=== PATIENT | male | born 1960 | race Caucasian/White ===

== ENCOUNTER → 2016-05-08 | Outpatient (CLI) | payer BC, OTHER ==
[~2016-05-08] MED LIST: CZR25 PO; LOSA1TAB38 PO; SIMV20TA2 PO; TPRSR25 PO
[2016-05-08 13:30] LABS: ALT/SGPT 32 U/L (12-78); AST/SGOT 24 U/L (15-37); BLOOD UREA NITROGEN 11 mg/dl (7-18); BUN/CREATININE RATIO 9.9 (10-20); CALCIUM 8.5 mg/dl (8.5-10.1); CARBON DIOXIDE 27 mmol/L (21-32); CHLORIDE 100 mmol/L (98-107); CHOLESTEROL 144 mg/dl (0-200); GLUCOSE 108 mg/dl (70-99); POTASSIUM 3.5 mmol/L (3.5-5.1); SODIUM 136 mmol/L (136-145)
[2016-05-08 13:34] LABS: CHOLESTEROL/HDL RATIO 4.5; HDL CHOLESTEROL 32 mg/dl; LDL CHOLESTEROL CALCULATED 94 mg/dl; TRIGLYCERIDES 92 mg/dl (0-150); VERY LOW DENSITY LIPOPROT CALC 18 mg/dl
== END | disposition home or self-care (01) ==
LOC: C.LABMFLN 09:10
PROVIDERS: ATTEND Family Medicine
DX: Z00.00 Encounter for general adult medical examination without abnormal findings (principal); Z13.220 Encounter for screening for lipoid disorders

== ENCOUNTER 2016-05-09 17:39 | Inpatient (IN) | payer BC, OTHER ==
[~2016-05-09] VITALS: Ht 170.2 cm; Wt 84.1 kg
[2016-05-09] MEDS ORDERED: ACETAMINOPHEN 500 MG TAB PO STA (18:05)
[2016-05-09] MEDS ORDERED: SODIUM CHLORIDE 0.9% 1000ML 1,000 ML IV STA ×2 (18:05→18:52)
--- NOTE | 2016-05-09 18:14 | DIAGNOSTIC IMAGING REPORT ---
CHEST ONE VIEW PORTABLE CLINICAL HISTORY: Sepsis dyspnea COMPARISON STUDY: No previous studies for comparison. FINDINGS: The bones soft tissues and hemidiaphragms are normal. The cardiomediastinal silhouette is normal. The lungs are clear. The pulmonary vasculature is normal. IMPRESSION: Negative chest. Electronically signed by: Lukasz Rai M.D. 05/09/2016 6:12 PM Dictated Date/Time: 05/09/2016 6:12 PM
[2016-05-09] MEDS ORDERED: ALBUT/IPRATROP 3MG/0.5MG NEB 3 ML VIAL INH ONE (18:15)
--- NOTE | 2016-05-09 18:23 | EMERGENCY ROOM VISIT NOTE ---
History Report prepared by Walt: Christine Edwards Under the Supervision of: Dr. Shankar Shelley M.D. First contact with patient: 17:55 Chief Complaint: WEAKNESS Stated Complaint: VERY WEAK,FEVER Nursing Triage Summary: See orange note on chart. Sent by Dr. Lawler. Was seen at [place] last night, unremarkable workup. Fever, fatigue, SOB, cough. History of Present Illness The patient is a 55 year old male who presents to the Emergency Room with complaints of worsening generalized weakness that started one week ago. The patient was sent by Dr. Lawler. The patient has been experiencing an intermittently productive cough with green or blood-tinged sputum that started about one week ago. He states that the cough is worse today. The patient is also experiencing chest tightness and he developed a fever several days ago. The patient states that he develops chills then a headache and once those resolve, he experiences dyspnea and fatigue with minimal exertion. He took two Tylenol Cold this morning at 0600, but he has not taken anything since then. He was seen in [place] yesterday and his work-up was unremarkable. He was negative for the flu yesterday. His lab work showed a white blood cell count of 15 and bacteria in his urine. The patient was unaware of the bacteria in his urine. The patient's adds that the patient's PCP was concerned about an infection around his heart. Source of History: patient Onset: one week ago Position: other (generalized) Quality: other (weakness) Timing: worsening Associated Symptoms: + SOB (dyspnea with minimal exertion), + chills, + cough (intermittently productive with green or blood-tinged sputum), + fatigue ( with minimal exertion), + fevers, + headache Note: chest tightness Review of Systems See HPI for pertinent positives & negatives. A total of 10 systems reviewed and were otherwise negative. Past Medical & Surgical Medical Problems: (1) Dyspnea (2) Hypertension (3) Troponin I above reference range Family History Heart disease Social History Smoking Status: Never Smoker Marital Status: Housing Status: lives with family Current/Historical Medications Scheduled Losartan Potassium (Cozaar), 100 MG PO DAILY Simvastatin (Zocor), 20 MG PO HS Allergies Coded Allergies: No Known Allergies (Unverified , 05/09/16) Physical Exam Vital Signs Date Time Temp Pulse Resp B/P Pulse Ox O2 Delivery O2 Flow Rate FiO2 05/09/16 20:46 78 20 96 Room Air 05/09/16 20:39 37.9 80 18 106/65 95 Room Air 05/09/16 19:27 95 Room Air 05/09/16 19:27 39.0 87 18 121/63 95 Room Air 05/09/16 18:50 88 05/09/16 17:40 38.4 91 18 121/70 97 Room Air Physical Exam GENERAL: Patient is a healthy-appearing well-nourished male. HEAD: Normocephalic atraumatic EYES: Ocular movements intact pupils equal and react to light OROPHARYNX mucous membranes are moist no exudates present no erythema or edema present NECK: Supple no nuchal rigidity no evidence of meningitis or encephalitis on exam CHEST: Good equal expansion LUNGS: Clear and equal to auscultation CARDIAC: Normal S1 and S2 ABDOMEN: Soft nontender no guarding BACK: No CVA tenderness EXTREMITIES: No pain upon palpation normal muscle strength in all groups no clubbing cyanosis or edema NEURO: Patient is following commands is answering questions appropriately. Alert and oriented x3 Cranial Nerves 2-12 grossly intact Medical Decision & Procedures ER Provider Diagnostic Interpretation: X-ray results as stated below per my interpretation and radiologist interpretation. Other radiology results as stated below per my review and radiologist interpretation: CHEST ONE VIEW PORTABLE IMPRESSION: Negative chest. Electronically signed by: Lukasz Rai M.D. 05/09/2016 6:12 PM Dictated Date/Time: 05/09/2016 6:12 PM CHEST CTA for PULMONARY ARTERIES IMPRESSION: No evidence for pulmonary embolus. The lungs are clear. Electronically signed by: Lukasz Rai M.D. 05/09/2016 10:15 PM Dictated Date/Time: 05/09/2016 10:12 PM Laboratory Results 05/09/16 18:29 Red Blood Count 4.17, Mean Corpuscular Volume 92.8, Mean Corpuscular Hemoglobin 32.1, Mean Corpuscular Hemoglobin Concent 34.6, Mean Platelet Volume 9.1, Neutrophils (%) (Auto) 69.5, Lymphocytes (%) (Auto) 13.2, Monocytes (%) (Auto) 16.9, Eosinophils (%) (Auto) 0.1, Basophils (%) (Auto) 0.1, Neutrophils # (Auto ) 9.79, Lymphocytes # (Auto) 1.86, Monocytes # (Auto) 2.38, Eosinophils # (Auto ) 0.01, Basophils # (Auto) 0.01 05/09/16 18:29 Test 05/09/16 18:29 05/09/16 18:38 05/09/16 18:55 White Blood Count 14.08 K/uL (4.8-10.8) Red Blood Count 4.17 M/uL (4.7-6.1) Hemoglobin 13.4 g/dL (14.0-18.0) Hematocrit 38.7 % (42-52) Mean Corpuscular Volume 92.8 fL (80-100) Mean Corpuscular Hemoglobin 32.1 pg (25-34) Mean Corpuscular Hemoglobin Concent 34.6 g/dl (32-36) Platelet Count 231 K/uL (130-400) Mean Platelet Volume 9.1 fL (7.4-10.4) Neutrophils (%) (Auto) 69.5 % Lymphocytes (%) (Auto) 13.2 % Monocytes (%) (Auto) 16.9 % Eosinophils (%) (Auto) 0.1 % Basophils (%) (Auto) 0.1 % Neutrophils # (Auto) 9.79 K/uL (1.4-6.5) Lymphocytes # (Auto) 1.86 K/uL (1.2-3.4) Monocytes # (Auto) 2.38 K/uL (0.11-0.59) Eosinophils # (Auto) 0.01 K/uL (0-0.5) Basophils # (Auto) 0.01 K/uL (0-0.2) RDW Standard Deviation 46.7 fL (36.4-46.3) RDW Coefficient of Variation 13.6 % (11.5-14.5) Immature Granulocyte % (Auto) 0.2 % Immature Granulocyte # (Auto) 0.03 K/uL (0.00-0.02) Prothrombin Time 11.7 SECONDS (9.0-12.0) Prothromb Time International Ratio 1.1 (0.9-1.1) Activated Partial Thromboplast Time 29.2 SECONDS (21.0-31.0) Partial Thromboplastin Ratio 1.1 Anion Gap 12.0 mmol/L (3-11) Est Creatinine Clear Calc Drug Dose 81.1 ml/min Estimated GFR () 86.5 Estimated GFR (Non- 74.6 BUN/Creatinine Ratio 7.2 (10-20) Calcium Level 8.0 mg/dl (8.5-10.1) Total Bilirubin 1.2 mg/dl (0.2-1) Aspartate Amino Transf (AST/SGOT) 27 U/L (15-37) Alanine Aminotransferase (ALT/SGPT) 30 U/L (12-78) Alkaline Phosphatase 48 U/L (45-117) Total Creatine Kinase 310 U/L (39-308) Creatine Kinase MB 1.1 ng/ml (0.5-3.6) Creatine Kinase MB Ratio 0.4 (0-3.0) Total Protein 7.9 gm/dl (6.4-8.2) Albumin 3.4 gm/dl (3.4-5.0) Globulin 4.5 gm/dl (2.5-4.0) Albumin/Globulin Ratio 0.8 (0.9-2) Monoscreen NEG (NEG) Bedside Lactic Acid Venous 0.74 mmol/L (0.90-1.70) Urine Color YELLOW Urine Appearance CLEAR (CLEAR) Urine pH 5.5 (4.5-7.5) Urine Specific [place] 1.013 (1.000-1.030) Urine Protein 2+ (NEG) Urine Glucose (UA) NEG (NEG) Urine Ketones TRACE (NEG) Urine Occult Blood 3+ (NEG) Urine Nitrite NEG (NEG) Urine Bilirubin NEG (NEG) Urine Urobilinogen NEG (NEG) Urine Leukocyte Esterase NEG (NEG) Urine WBC (Auto) 1-5 /hpf (0-5) Urine RBC (Auto) 0-4 /hpf (0-4) Urine Hyaline Casts (Auto) 1-5 /lpf (0-5) Urine Epithelial Cells (Auto) 10-20 /lpf (0-5) Urine Bacteria (Auto) NEG (NEG) Influenza Type A (RT-PCR) Neg for Influ A (NEG) Influenza Type B (RT-PCR) Neg for Influ B (NEG) Labs reviewed by ED physician. Medications Administered Medications (Trade) Dose Ordered Sig/Ifrah Route Start Time Stop Time Status Last Admin Dose Admin Acetaminophen (Tylenol Tab) 1,000 mg NOW STAT PO 05/09/16 18:05 05/09/16 18:08 DC 05/09/16 18:52 1,000 MG Albuterol/ Ipratropium 12 ml 12 ml ONE ONCE INH 05/09/16 18:15 05/09/16 18:16 DC 05/09/16 20:45 12 ML Sodium Chloride (Nss 1000ml) 1,000 ml @ 999 mls/hr Q1H1M STAT IV 05/09/16 18:05 05/09/16 19:05 DC 05/09/16 19:00 999 MLS/HR Ketorolac Tromethamine 30 mg 30 mg NOW STAT IV 05/09/16 18:52 05/09/16 18:54 DC 05/09/16 19:22 30 MG Sodium Chloride (Nss 1000ml) 1,000 ml @ 999 mls/hr Q1H1M STAT IV 05/09/16 18:52 05/09/16 19:52 DC 05/09/16 19:26 999 MLS/HR Potassium Chloride (Klor-Con M10) 40 meq NOW STAT PO 05/09/16 19:31 05/09/16 19:32 DC 05/09/16 20:39 40 MEQ Vancomycin HCl (Vancomycin 1gm/ 270ml Nss) 1 gm NOW STAT IV 05/09/16 20:10 05/09/16 20:13 DC 05/09/16 20:39 1 GM ECG Indication: weakness Rate (beats per minute): 91 Rhythm: normal sinus Findings: no acute ischemic change, no ectopy ED Course 175: Past medical records reviewed. The patient was evaluated in room B10. A complete history and physical examination was performed. 1805: Ordered Sodium Chloride 1000 ml @ 999 mls/hr IV, Tylenol tab 1000 mg PO 1815: Ordered DuoNeb 12 ml INH 1852: Ordered Sodium Chloride 1000 ml @ 999 mls/hr IV, Toradol Inj 30 mg IV 1930: Ordered Potassium Chloride 40 meq PO 2009: Ordered Vancomycin HCl 1 gm IV, Zosyn 4.5 gm IV 2015: I discussed the patient's case with Dr. Pereira - [facility] [place], he has agreed to evaluate the patient for further management and care. 2017: Upon reexamination the patient is resting comfortably. I discussed results and treatment plan with the patient. He verbalizes agreement and understanding. I spoke with Dr. Pereira from the [facility]. The patient will be evaluated for further management. Medical Decision Differential diagnosis: Etiologies such as metabolic, infection, hypo/hyperglycemia, electrolyte abnormalities, cardiac sources, intracerebral event, toxicologic, neurologic, as well as others were entertained. This is a 55-year-old male who presents emergency department complaining of shortness of breath that has been ongoing for the past 3 days. She was sent in by his primary care physician as he is an elevation in his white blood count he was given 2 L of fluid in the emergency department and started on antibiotics. He is also given Tylenol as well as Toradol. Repeat examination revealed improvement patient's symptoms. The patient also has an elevation in his troponin level. For this reason I did discuss the case with the hospitalist service. Patient was in agreement with the treatment plan. Consults Time Called: 2012 Consulting Physician: Dr. Kelli LOWE Returned Call: 2014 I discussed the patient's case with Dr. Kelli LOWE, he has agreed to evaluate the patient for further management and care. Impression Primary Impression: Fever Critical Care I have personally spent greater than 30 minutes of critical care time in the direct management of this patient. This includes bedside care, interpretation of diagnostic studies, and testing, discussion with consultants, patient, and family members, and other required patient management activities. This 30 minutes is in excess of all separately billable procedures. Scribe Attestation The scribe's documentation has been prepared under my direction and personally reviewed by me in its entirety. I confirm that the note above accurately reflects all work, treatment, procedures, and medical decision making performed by me. Departure Information Dispostion Being Evaluated By Hospitalist Referrals Jose Lawler M.D. (PCP) Patient Instructions My [facility] Problem Qualifiers Primary Impression: Fever Fever type: unspecified Qualified Codes: R50.9 - Fever, unspecified
[2016-05-09 18:51] LABS: BASO % 0.1 %; BASO ABS # 0.01 K/uL (0-0.2); COMPLETE YES; EOS % 0.1 %; HEMATOCRIT 38.7 % (42-52); IG% 0.2 %; LYMPH % 13.2 %; LYMPH ABS # 1.86 K/uL (1.2-3.4); MEAN CELL VOLUME 92.8 fL (80-100); MEAN CORPUSCULAR HEMOGLOBIN 32.1 pg (25-34); MEAN CORPUSCULAR HGB CONC 34.6 g/dl (32-36); MEAN PLATELET VOLUME 9.1 fL (7.4-10.4); MONO % 16.9 %; NEUT % 69.5 %; PLATELET COUNT 231 K/uL (130-400); RED BLOOD COUNT 4.17 M/uL (4.7-6.1); WHITE BLOOD COUNT 14.08 K/uL (4.8-10.8)
[2016-05-09] MEDS ORDERED: KETOROLAC TROMETHAMINE 30 MG/ML VIAL IV STA (18:52)
[2016-05-09 19:00] LABS: INR 1.1 (0.9-1.1); PARTIAL THROMBOPLASTIN RATIO 1.1; PROTHROMBIN TIME (PATIENT) 11.7 SECONDS (9.0-12.0)
[2016-05-09] MEDS ORDERED: LOSA1TAB38 PO (19:18)
[2016-05-09] MEDS ORDERED: SIMV20TA2 PO (19:18)
[2016-05-09 19:27] LABS: BUN/CREATININE RATIO 7.2 (10-20); CREATININE 1.1 mg/dl (0.60-1.40); POTASSIUM 3.3 mmol/L (3.5-5.1)
[2016-05-09] MEDS ORDERED: POTASSIUM CHLORIDE 10 MEQ TABCR PO STA ×2 (19:31→22:29)
[2016-05-09 19:32] LABS: URINE APPEARANCE CLEAR (CLEAR); URINE BILIRUBIN NEG (NEG); URINE COLOR YELLOW; URINE NITRITE NEG (NEG); URINE PH 5.5 (4.5-7.5); URINE SPECIFIC GRAVITY 1.013 (1.000-1.030); UROBILINOGEN NEG (NEG); ZZUR CULT IF INDIC CLEAN CATCH NO
[2016-05-09 19:33] LABS: MANUAL MICROSCOPIC REQUIRED? NO; REVIEW REQ? NO
[2016-05-09 19:49] LABS: ALB/GLOB RATIO 0.8 (0.9-2); CKMB/CK RATIO 0.4 (0-3.0)
[2016-05-09] MEDS ORDERED: VANCOMYCIN 1GM/270ML NSS IV STA (20:10)
[2016-05-09] MEDS ORDERED: PIPERACILLIN/TAZOBACTAM 4.5 GM/100ML D5W IV STA (20:10)
[2016-05-09] MEDS ORDERED: OPTIRAY 320 IV PRN (20:30)
[2016-05-09 20:46] VITALS: PULSE 78; O2SAT 96
[2016-05-09] MEDS ORDERED: ALUMINUM/MAGNESIUM/SIMETH (MAALOX MAX) 30 ML UDC PO PRN (21:15)
[2016-05-09] MEDS ORDERED: ZOLPIDEM TARTRATE 5 MG TAB PO PRN (21:15)
[2016-05-09] MEDS ORDERED: ONDANSETRON INJ 2 MG/ML 2 ML VIAL IV PRN (21:15)
[2016-05-09] MEDS ORDERED: MoRPHine SULFATE 2 MG/ML CARP IV PRN (21:15)
[2016-05-09] MEDS ORDERED: POLYETHYLENE (MIRALAX) 17 GM PACK PO PRN (21:15)
[2016-05-09] MEDS ORDERED: MAGNESIUM HYDROXIDE SUSP 30 ML UDC PO PRN (21:15)
[2016-05-09] MEDS ORDERED: NITROGLYCERIN 0.4 MG SL PER TAB CHARGE SL PRN (21:15)
[2016-05-09 21:18] LABS: INFLUENZA A PCR Neg for Influ A (NEG); INFLUENZA B PCR Neg for Influ B (NEG)
--- NOTE | 2016-05-09 21:31 | History and Physical ---
History & Physical Date & Time of Service: May 09, 2016 at 21:14 Chief Complaint: Very Weak,Fever Primary Care Physician: Jose Lawler M.D. History of Present Illness Source: patient 55 y/o M w/Hx HTN, HPL. Pt has had progressive SOB and recurrent fevers for 1 week. He denies CP but describes persistent tightness in his chest and admits to a productive cough and a sore throat. He presented to the ER at the behest of his primary MD and initial labs revealed a (+) troponin of 0.53. There is no clear evidence of PNM on initial CXR. Rapid flu is negative - PCR pending. CT chest pending on admission. Past Medical/Surgical History Medical Problems: (1) Hypertension Status: Chronic 2) Hyperlipidemia Family History Heart disease Social History Smoking Status: Never Smoker Marital Status: Allergies Coded Allergies: No Known Allergies (Unverified , 05/09/16) Home Medications Scheduled Losartan Potassium (Cozaar), 100 MG PO DAILY Simvastatin (Zocor), 20 MG PO HS Review of Systems Constitutional: + chills, + fever, + sweats Eyes: No eye pain, No worsening of vision ENT: No hearing loss, No nasal symptoms, No unusual epistaxis Respiratory: + dyspnea at rest, + dyspnea on exertion, + shortness of breath, No cough, No sputum, No wheezing Cardiovascular: No PND, No chest pain, No orthopnea Abdomen: No nausea, No pain, No vomiting Musculoskeletal: No joint pain, No muscle pain Genitourinary - Male: No dysuria, No hematuria, No urinary frequency, No urinary urgency Neurologic: + weakness, No memory loss, No paralysis Psychiatric: No anhedonism, No depression symptoms Endocrine: + fatigue Hematologic / Lymphatic: No abnormal bleeding/bruising Integumentary: No rash Allergic / Immunologic: No environmental allergies Physical Exam Vital Signs Date Time Temp Pulse Resp B/P Pulse Ox O2 Delivery O2 Flow Rate FiO2 05/09/16 20:46 78 20 96 Room Air 05/09/16 20:39 37.9 80 18 106/65 95 Room Air 05/09/16 19:27 95 Room Air 05/09/16 19:27 39.0 87 18 121/63 95 Room Air 05/09/16 18:50 88 05/09/16 17:40 38.4 91 18 121/70 97 Room Air General Appearance: WD/WN, no apparent distress Head: normocephalic Eyes: normal inspection, PERRL, EOMI ENT: normal ENT inspection, hearing grossly normal, TMs normal, pharynx normal Neck: supple, thyroid normal Respiratory/Chest: chest non-tender, lungs clear, normal breath sounds, no respiratory distress, no accessory muscle use Cardiovascular: regular rate, rhythm, no edema, no gallop, no JVD, no murmur, normal peripheral pulses Abdomen/GI: normal bowel sounds, non tender, soft, occult blood negative Back: normal inspection, no CVA tenderness Extremities/Musculoskelatal: normal inspection, no calf tenderness, normal capillary refill, no pedal edema, normal range of motion 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, no motor/sensory deficits, alert, normal mood/affect, normal reflexes, oriented x 3 Skin: normal color, warm/dry, no rash Lymphatic: no adenopathy Diagnostics Laboratory Results Results Past 24 Hours Test 05/09/16 18:29 05/09/16 18:38 05/09/16 18:55 Range/Units White Blood Count 14.08 4.8-10.8 K/uL Red Blood Count 4.17 4.7-6.1 M/uL Hemoglobin 13.4 14.0-18.0 g/dL Hematocrit 38.7 42-52 % Mean Corpuscular Volume 92.8 80-100 fL Mean Corpuscular Hemoglobin 32.1 25-34 pg Mean Corpuscular Hemoglobin Concent 34.6 32-36 g/dl Platelet Count 231 130-400 K/uL Mean Platelet Volume 9.1 7.4-10.4 fL Neutrophils (%) (Auto) 69.5 % Lymphocytes (%) (Auto) 13.2 % Monocytes (%) (Auto) 16.9 % Eosinophils (%) (Auto) 0.1 % Basophils (%) (Auto) 0.1 % Neutrophils # (Auto) 9.79 1.4-6.5 K/uL Lymphocytes # (Auto) 1.86 1.2-3.4 K/uL Monocytes # (Auto) 2.38 0.11-0.59 K/uL Eosinophils # (Auto) 0.01 0-0.5 K/uL Basophils # (Auto) 0.01 0-0.2 K/uL RDW Standard Deviation 46.7 36.4-46.3 fL RDW Coefficient of Variation 13.6 11.5-14.5 % Immature Granulocyte % (Auto) 0.2 % Immature Granulocyte # (Auto) 0.03 0.00-0.02 K/uL Prothrombin Time 11.7 9.0-12.0 SECONDS Prothromb Time International Ratio 1.1 0.9-1.1 Activated Partial Thromboplast Time 29.2 21.0-31.0 SECONDS Partial Thromboplastin Ratio 1.1 Sodium Level 138 136-145 mmol/L Potassium Level 3.3 3.5-5.1 mmol/L Chloride Level 101 98-107 mmol/L Carbon Dioxide Level 25 21-32 mmol/L Anion Gap 12.0 3-11 mmol/L Blood Urea Nitrogen 8 7-18 mg/dl Creatinine 1.10 0.60-1.40 mg/dl Est Creatinine Clear Calc Drug Dose 81.1 ml/min Estimated GFR () 86.5 Estimated GFR (Non- 74.6 BUN/Creatinine Ratio 7.2 10-20 Random Glucose 95 70-99 mg/dl Calcium Level 8.0 8.5-10.1 mg/dl Total Bilirubin 1.2 0.2-1 mg/dl Aspartate Amino Transf (AST/SGOT) 27 15-37 U/L Alanine Aminotransferase (ALT/SGPT) 30 12-78 U/L Alkaline Phosphatase 48 45-117 U/L Total Creatine Kinase 310 39-308 U/L Creatine Kinase MB 1.1 0.5-3.6 ng/ml Creatine Kinase MB Ratio 0.4 0-3.0 Troponin I 0.520 0-0.045 ng/ml Total Protein 7.9 6.4-8.2 gm/dl Albumin 3.4 3.4-5.0 gm/dl Globulin 4.5 2.5-4.0 gm/dl Albumin/Globulin Ratio 0.8 0.9-2 Monoscreen NEG NEG Bedside Lactic Acid Venous 0.74 0.90-1.70 mmol/L Urine Color YELLOW Urine Appearance CLEAR CLEAR Urine pH 5.5 4.5-7.5 Urine Specific [place] 1.013 1.000-1.030 Urine Protein 2+ NEG Urine Glucose (UA) NEG NEG Urine Ketones TRACE NEG Urine Occult Blood 3+ NEG Urine Nitrite NEG NEG Urine Bilirubin NEG NEG Urine Urobilinogen NEG NEG Urine Leukocyte Esterase NEG NEG Urine WBC (Auto) 1-5 0-5 /hpf Urine RBC (Auto) 0-4 0-4 /hpf Urine Hyaline Casts (Auto) 1-5 0-5 /lpf Urine Epithelial Cells (Auto) 10-20 0-5 /lpf Urine Bacteria (Auto) NEG NEG Microbiology Results 05/09/16 Blood Culture, Received Pending 05/09/16 Blood Culture, Received Pending CXR normal Normal EKG Impression Assessment and Plan 55 y/o M w/Hx HTN, HPL. Pt has had progressive SOB and recurrent fevers for 1 week. He denies CP but describes persistent tightness in his chest and admits to a productive cough and a sore throat. He presented to the ER at the behest of his primary MD and initial labs revealed a (+) troponin of 0.53. There is no clear evidence of PNM on initial CXR. Rapid flu is negative - PCR pending. CT chest pending on admission. 1) Fevers and SOB - normal CXR - CT chest pending - pt is borderline tachy so that a viral illness in addition to PE is in the differential considering his elevated trop. Recieved antibiotics empirically in ER 2) Troponin elevation - will be placed on full dose anticoagulation, increased statin dose - will trend troponins, monitor on tlemetry and obtain an echo AM - elevation may agin be due to a PE and a CT chest is pending. Considering his temp we cannot r/o endocarditis , pericarditis , myocarditis - blood cultures obtained. Pt provided with a dose of Vanc and Zosyn in ER. We can continue monotherapy with Ceftriaxone if Flu is negative and pending culture and CT results. 3) HTN - cont Cozaar 4) Mild hypoK, HypoCA = repleted - repeat labs in AM Full does heparin - full code Total time for this admit including review of meds, labs, records, imaging, EKG - discussion with pt and ER attending - 37 min Level of Care Telemetry Resuscitation Status FULL RESUSCITATION VTE Prophylaxis VTE Risk Assessment Done? Y/N: Yes Risk Level: Moderate Given or contraindicated: Other Anticoagulation
[2016-05-09] MEDS ORDERED: ALBUTEROL 0.083% NEBU SOLN 3 ML VIAL INH PRN (21:45)
--- NOTE | 2016-05-09 22:16 | DIAGNOSTIC IMAGING REPORT ---
CHEST CTA for PULMONARY ARTERIES CT DOSE: 567.50 mGy.cm HISTORY: Chest pain dyspnea TECHNIQUE: Multiaxial CT images of the chest were performed following the intravenous administration of contrast to evaluate the pulmonary arteries. Maximal intensity projection images were also obtained. COMPARISON STUDY: None. FINDINGS: There is a normal caliber thoracic aorta with no evidence for dissection. There is no evidence for pulmonary embolus. No pleural effusions. No pneumothorax. The liver and spleen are unremarkable. No mediastinal or hilar lymphadenopathy. The central airways are patent. The lungs are clear. Minimal basilar dependent atelectasis IMPRESSION: No evidence for pulmonary embolus. The lungs are clear. Electronically signed by: Lukasz Rai M.D. 05/09/2016 10:15 PM Dictated Date/Time: 05/09/2016 10:12 PM
[2016-05-09 22:20] VITALS: BP 109/72; PULSE 93; TEMP 36.7; O2SAT 95; Ht 170.2 cm; Wt 84.1 kg
[2016-05-09] MEDS ORDERED: NSS + 20MEQ KCL 1000ML 1,000 ML IV SCH (23:00)
[2016-05-09] MEDS ORDERED: HEPARIN IV BOLUS 6,000 UNIT in SYRINGE 0 ML IV ONE (23:15)
[2016-05-09 23:28] VITALS: BP 116/73; PULSE 86; TEMP 36.8; O2SAT 95
[2016-05-09] MEDS: HEPARIN 25,000 UNIT/500ML D5W 500 ML IV PRN (23:36)
[2016-05-09] MEDS ORDERED: VANCOMYCIN CONSULT ACTIVE PRN (23:45)
[2016-05-10] VITALS (16 sets, daily range): BP systolic 106–154; BP diastolic 66–85; PULSE 95–114; TEMP 36.8–39.4; O2SAT 84–96
[2016-05-10] MEDS ORDERED: SODIUM CHLORIDE 0.9% IV SCH ×2
[2016-05-10] MEDS ORDERED: VANCOMYCIN IV SCH ×2
[2016-05-10] MEDS: CEFTRIAXONE SOD INJ 1 GM in DEXTROSE 5% ADD-VANTAGE 50ML 50 ML IV SCH (00:09)
[2016-05-10] MEDS: ACETAMINOPHEN 325 MG TAB PO PRN ×5 (01:18→23:03)
[2016-05-10] MEDS ORDERED: FUROSEMIDE 40 MG/4 ML VIAL ONE (02:54)
[2016-05-10] MEDS ORDERED: FUROSEMIDE INJ 20 MG in SYRINGE 0 ML IV ONE (03:15)
[2016-05-10 05:44] LABS: HEMATOCRIT 36.5 % (42-52); MEAN CELL VOLUME 90.8 fL (80-100); MEAN CORPUSCULAR HEMOGLOBIN 31.1 pg (25-34); MEAN CORPUSCULAR HGB CONC 34.2 g/dl (32-36); PLATELET COUNT 216 K/uL (130-400); RED BLOOD COUNT 4.02 M/uL (4.7-6.1); WHITE BLOOD COUNT 15.24 K/uL (4.8-10.8)
[2016-05-10 05:59] LABS: PARTIAL THROMBOPLASTIN RATIO 1.7
[2016-05-10 06:09] LABS: BUN/CREATININE RATIO 8.3 (10-20); CALCIUM 7.5 mg/dl (8.5-10.1); CREATININE 0.97 mg/dl (0.60-1.40); MAGNESIUM 2.2 mg/dl (1.8-2.4); POTASSIUM 3.6 mmol/L (3.5-5.1)
[2016-05-10] MEDS: HEPARIN 25,000 UNIT/500ML D5W 500 ML IV PRN ×2 (06:39→16:23)
[2016-05-10] MEDS ORDERED: HEPARIN IV BOLUS 3,000 UNIT in SYRINGE 0 ML IV ONE (06:45)
[2016-05-10] MEDS: ALBUT/IPRATROP 3MG/0.5MG NEB 3 ML VIAL INH SCH ×4 (07:29→19:59)
[2016-05-10] MEDS: CALCIUM CARBONATE 1250MG TAB PO SCH ×2 (07:29→20:30)
--- NOTE | 2016-05-10 08:06 | DIAGNOSTIC IMAGING REPORT ---
CHEST ONE VIEW PORTABLE CLINICAL HISTORY: Congestive heart failure. COMPARISON STUDY: Chest radiograph and chest CT May 09, 2016. FINDINGS: Lung volumes are normal. There is no pneumothorax or pleural effusion. Cardiac size is at the upper limits of normal. There has been interval development of pulmonary vascular congestion with suspected mild pulmonary edema. This is slightly greater within the left lung. IMPRESSION: Interval development of suspected mild pulmonary edema, slightly greater within the left lung. Electronically signed by: Jarad Chaves M.D. 05/10/2016 8:05 AM Dictated Date/Time: 05/10/2016 8:04 AM
[2016-05-10] MEDS: DOXYCYCLINE IV 100 MG in DEXTROSE 5% 100ML 100 ML IV SCH ×2 (08:29→20:30)
--- NOTE | 2016-05-10 09:41 | ECHOCARDIOGRAM REPORT ---
*NOTICE TO RECEIVING [employer] This information is strictly Confidential and protected under [place] law. [place] law prohibits you from making any further disclosure of this information unless further disclosure is expressly permitted by the written consent of the person to whom it pertains or is authorized by law. A general authorization for the release of medical or other information is not sufficient for this purpose. Hospital accepts no responsibility if the information is made available to any other person, INCLUDING THE PATIENT. Interpretation Summary * Name: LUPE BRANDON Study Date: 05/10/2016 06:45 AM BP: 106/68 mmHg * Patient Location: C.2T\S\S241\S\2 HR: 105 * : 1960 (M/d/yyyy) Gender: Male Height: 68 in * Age: 55 yrs Ethnicity: CA Weight: 195 lb * Ordering Physician: Prashant Pereira * Referring Physician: Jose Lawler * Performed By: Fide Smith RCS * * Reason For Study: Elevated Troponin * BSA: 2.0 m2 * -- Conclusions -- * 1. Mildly dilated left ventricle with mildly reduced systolic function. Estimated EF 45%. Severe hypokinesis to akinesis of inferior wall, otherwise, mild global hypokinesis. No left ventricular hypertrophy. Diastolic dysfunction, Grade II (pseudonormalization pattern). * 2. There is mild mitral regurgitation. * 3. Technically difficult study. * 4. Normal estimated right ventricular systolic pressure; RVSP 32 mmHg. * 5. No prior study available for comparison. Procedure Details * A complete two-dimensional transthoracic echocardiogram was performed (2D, M-mode, Doppler and color flow Doppler). Left Ventricle * Mildly dilated left ventricle with mildly reduced systolic function. Estimated EF 45%. Severe hypokinesis to akinesis of inferior wall, otherwise, mild global hypokinesis. No left ventricular hypertrophy. Right Ventricle * The right ventricle is normal in size and function. * The right ventricular systolic function is normal as assessed by tricuspid annular plane systolic excursion (TAPSE) (normal >1.5 cm). Atria * The left atrial size is normal. * Right atrial size is normal. * There is no evidence of atrial septal defect, but resolution does not allow assessment for a patent foramen ovale. Mitral Valve * The mitral valve is grossly normal. * There is no mitral valve stenosis. * There is mild mitral regurgitation. Tricuspid Valve * The tricuspid valve is not well visualized, but is grossly normal. * There is no tricuspid stenosis. * There is trace tricuspid regurgitation. Aortic Valve * The aortic valve is trileaflet. * No hemodynamically significant valvular aortic stenosis. * No aortic regurgitation is present. Pulmonic Valve * The pulmonary valve is inadequately visualized, but the Doppler data is adequate for interpretation. * There is no pulmonic valvular stenosis. * There is no significant pulmonary regurgitation. Great Vessels * The aortic root is normal size. * Ascending aorta of normal dimension Pericardium/Pleural * There is no pericardial effusion. Great Vessels * Normal inferior vena cava size and collapsability with sniff indicates a normal right atrial pressure of 3 mmHg Left Ventricular Diastolic Function * Diastolic dysfunction, Grade II (pseudonormalization pattern). MMode 2D Measurements and Calculations IVSd 1.1 cm IVSs 1.5 cm LVIDd 5.3 cm LVIDs 3.6 cm LVPWd 1.1 cm LVPWs 1.4 cm IVS/LVPW 1.0 FS 31.7 % EDV(Teich) 133.7 ml ESV(Teich) 54.5 ml EF(Teich) 59.2 % EDV(cubed) 146.5 ml ESV(cubed) 46.7 ml EF(cubed) 68.1 % % IVS thick 39.0 % % LVPW thick 35.5 % LV mass(C)d 216.7 grams LV mass(C)dI 107.1 grams/m\S\2 LV mass(C)s 193.5 grams LV mass(C)sI 95.7 grams/m\S\2 CO(Teich) 8.0 l/min CI(Teich) 4.0 l/min/m\S\2 SV(Teich) 79.2 ml SI(Teich) 39.2 ml/m\S\2 CO(cubed) 10.1 l/min CI(cubed) 5.0 l/min/m\S\2 SV(cubed) 99.8 ml SI(cubed) 49.4 ml/m\S\2 Ao root diam 3.4 cm Ao root area 9.3 cm\S\2 ACS 1.9 cm LA dimension 3.3 cm asc Aorta Diam 3.0 cm LA/Ao 0.97 LVAd ap4 34.2 cm\S\2 LVLd ap4 9.0 cm EDV(MOD-sp4) 112.7 ml EDV(sp4-el) 117.7 ml LVAs ap4 18.9 cm\S\2 LVLs ap4 7.0 cm ESV(MOD-sp4) 61.3 ml ESV(sp4-el) 63.1 ml EF(MOD-sp4) 45.6 % EF(sp4-el) 46.4 % LVAd ap2 31.5 cm\S\2 LVLd ap2 9.1 cm EDV(MOD-sp2) 123.6 ml EDV(sp2-el) 128.5 ml LVAs ap2 18.9 cm\S\2 LVLs ap2 7.9 cm ESV(MOD-sp2) 67.1 ml ESV(sp2-el) 70.6 ml EF(MOD-sp2) 45.7 % EF(sp2-el) 45.1 % LVLd %diff 2.2 % EDV(MOD-bp) 120.1 ml LVLs %diff 4.1 % ESV(MOD-bp) 65.9 ml EF(MOD-bp) 45.1 % CO(MOD-sp4) 5.2 l/min CI(MOD-sp4) 2.6 l/min/m\S\2 SV(MOD-sp4) 51.4 ml SI(MOD-sp4) 25.4 ml/m\S\2 CO(MOD-sp2) 5.7 l/min CI(MOD-sp2) 2.8 l/min/m\S\2 SV(MOD-sp2) 56.5 ml SI(MOD-sp2) 27.9 ml/m\S\2 CO(MOD-bp) 5.5 l/min CI(MOD-bp) 2.7 l/min/m\S\2 SV(MOD-bp) 54.1 ml SI(MOD-bp) 26.8 ml/m\S\2 CO(sp4-el) 5.5 l/min CI(sp4-el) 2.7 l/min/m\S\2 SV(sp4-el) 54.6 ml SI(sp4-el) 27.0 ml/m\S\2 CO(sp2-el) 5.9 l/min CI(sp2-el) 2.9 l/min/m\S\2 SV(sp2-el) 58.0 ml SI(sp2-el) 28.7 ml/m\S\2 Doppler Measurements and Calculations MV E max elsa 85.3 cm/sec MV A max elsa 65.4 cm/sec MV E/A 1.3 MV P1/2t max elsa 93.7 cm/sec MV P1/2t 50.9 msec MVA(P1/2t) 4.3 cm\S\2 MV dec slope 538.9 cm/sec\S\2 MV dec time 0.22 sec Ao V2 max 95.7 cm/sec Ao max PG 3.7 mmHg Ao max PG (full) 0.36 mmHg LV V1 max PG 3.3 mmHg LV V1 max 90.8 cm/sec PA V2 max 78.4 cm/sec PA max PG 2.5 mmHg TR max elsa 267.4 cm/sec RVSP(TR) 31.6 mmHg RAP systole 3.0 mmHg
--- NOTE | 2016-05-10 11:08 | Progress Note ---
Progress Note ID Consult Dictated #[id number] A/P: 1. Fever -infection vs non infectious etiology -No clear infectious source on exam/history but continue with broad spectrum abx pending cultures - blood and sputum pending. -Cardio consult pending, echo without veg but hypokinesis and EF 45% -Doubt tick borne illness, follow cultures, would repeat blood cultures with fever -No recent outpt procedures, had dental work in February 2016, otherwise no recent medical care -Will follow, thank you
--- NOTE | 2016-05-10 11:46 | INFECT. DISEASE CONSULTATION ---
DATE OF CONSULTATION: 05/10/2016 REQUESTING PHYSICIAN: Dr. Pereira. HISTORY OF PRESENT ILLNESS: This is a 55-year-old gentleman who was admitted from home after he had worsening fevers. He states these began on Thursday. He was initially seen on at an urgent care center in [place]. At that time he had reported fever of 103 degrees. For this reason he was sent to the ER in [place]. He states that he did have a complete workup while in [place]. He does believe cultures were obtained. He did have a flu swab, which was negative. He states his chest x-ray and blood work were within normal limits and he was subsequently discharged to home from the Emergency Room. He woke up on Thursday and continued to have fevers and chills. He did schedule a sick visit with his primary care physician. After that visit, he was sent to [facility] for admission to the hospital. He was admitted last evening. He has had persistent fever since admission to the hospital. His T-max since admission is 39.1 at 1:30 this morning. His last recorded temperature is at 8:00 a.m. and is normal at 36.9. However, on my exam today, he states he is beginning to feel somewhat chilly and he describes this as the beginning of a febrile episode. He has had some dry cough. He did have some productive sputum this morning and a sputum sample was sent. Blood cultures were also obtained in the Emergency Room and results of these are pending. He was placed on multiple broad-spectrum antibiotics consisting of Rocephin, vancomycin and doxycycline. He does have an elevated white blood cell count today of 15.2. He has also had positive troponins. His initial troponin was 0.5. This morning it is 2.2. Per the Emergency Room records as well as the H\T\P, he was complaining of chest tightness; however, he does not complain about it on my examination today. He denies any shortness of breath or dyspnea on exertion. He denies any headache, neck pain or visual changes. He denies any lymphadenopathy. He denies any pleuritic chest pain. He denies any significant productive cough or hemoptysis. He denies any nausea, vomiting or diarrhea. He has no abdominal pain. He states his appetite has been poor since Thursday. He denies any urinary complaints; however, he does admit to having decreased urination. He states he was given some medication overnight to help with urination and he has urinated twice this morning. He has no dysuria, hematuria, frequency or urgency associated with this. He denies any muscle or joint pain. He denies any skin rash. 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 He states he is entirely endorsed at work. He has had no travel either within or outside of the country in many years. He lives at home with his who is currently undergoing chemotherapy for metastatic breast cancer but is otherwise healthy. They also have a 10-year-old daughter who recently had an upper respiratory infection, but has not had any fevers or chills at home. They have 1 dog in the house, which is immunized and strictly indoors. He has no other sick contacts. He denies any insect bites. All remaining review of systems are reviewed and are negative. PAST MEDICAL HISTORY: Significant for hypertension and hyperlipidemia. PAST SURGICAL HISTORY: Unremarkable. FAMILY HISTORY: Noncontributory. SOCIAL HISTORY: Negative for tobacco use, alcohol use or drug use. His remaining social history is as above. ALLERGIES: He has no known drug allergies. CURRENT MEDICATIONS: Include vancomycin, calcium, doxycycline, DuoNeb, ceftriaxone, subQ heparin, albuterol, Tylenol, milk of magnesia, Maalox, Ambien, Zofran, Nitrostat, morphine, MiraLax. PHYSICAL EXAMINATION: VITAL SIGNS: His current temperature is 36.9, T-max is 39.1; pulse 114, respiratory rate 22, blood pressure 130/71 and oxygen saturation is 95% on room air. GENERAL: He is awake, alert and oriented x3. He is in no acute distress. HEENT: Mucous membranes are moist. There is no tonsillar adenopathy or swelling. HEART: Regular and tachycardic. I do not auscultate a murmur. LUNGS: Clear to auscultation bilaterally. ABDOMEN: Soft, nontender, nondistended. EXTREMITIES: There is no lower extremity edema bilaterally. SKIN: Without rash. LABORATORY STUDIES: CBC today reveals a white blood cell count of 15.2, hemoglobin 12.5, hematocrit 36.5, and platelets are 216. Chemistry panel reveals a sodium of 142, potassium 3.6, chloride 112, bicarbonate 22, BUN 8, creatinine 0.9, glucose is 121. LFTs are within normal limits on admission with the exception of a mildly elevated bilirubin of 1.2. His CK was mildly elevated at 310. CRP is 13. Troponins are positive with most recent troponin this morning of 2.2. Urinalysis had 1-5 WBCs and no bacteria. A flu swab was negative and [place] screen was negative. Denice-Read antibodies are pending. Blood cultures and sputum cultures are pending. Chest x-ray done this morning shows right pulmonary edema, slightly greater within the left lung. A CAT scan of the chest done last night shows no evidence for PE, lungs were clear. There were no effusions. Liver and spleen were unremarkable. There was no mediastinal or hilar lymphadenopathy. There was minimal bibasilar dependent atelectasis. Echocardiogram was done this morning showed an EF of 45%, hypokinesis to akinesis of the inferior wall. There was global hypokinesis. There is mild mitral regurgitation. There is no evidence of vegetation on transthoracic echocardiogram. ASSESSMENT AND PLAN: Fever, infectious versus noninfectious etiology. At this time, I would maintain the patient on broad-spectrum antibiotics pending the results of sputum and blood cultures. It does appear that he is having positive troponins and certainly may be having a cardiac event. A cardiology evaluation is pending. Although this can cause fever, I would doubt that this would cause rigors to the degree he is describing, therefore, he should be maintained on antibiotics. Viral studies are pending. I do not elicit any risk factor for Lyme disease; however, a Lyme titer could be obtained, although I doubt this is the etiology for his current symptoms. We will follow along with you. Thank you for this consultation.
[2016-05-10] MEDS: VANCOMYCIN INJ 1,300 MG in SODIUM CHLORIDE 0.9% 250ML 250 ML IV SCH ×2 (12:52→22:12)
[2016-05-10] MEDS ORDERED: METOPROLOL SUCC 25MG EXT REL TAB PO ONE (13:00)
[2016-05-10 13:31] LABS: PARTIAL THROMBOPLASTIN RATIO 1.9
--- NOTE | 2016-05-10 14:14 | CARDIOLOGY CONSULTATION ---
DATE OF CONSULTATION: 05/10/2016 CONSULTING PHYSICIAN: Dr. Pereira. REASON FOR CONSULTATION: Elevated troponin, shortness of breath. TIME: 12:33 p.m. HISTORY OF PRESENT ILLNESS: Mr. Amezquita is a very pleasant 55-year-old gentleman with history significant for hypertension and dyslipidemia. He presented to [facility] yesterday with fever and generalized weakness. He states that 2 or 3 weeks ago he had his usual cold-like symptoms. He had a mild sore throat, chest congestion and head congestion. There was some tightness in his chest with these symptoms, but he states that is typical when he gets a chest cold. He took [id number] medications and he eventually improved and these symptoms resolved. Then 3 days ago he developed exertional fatigue with even minimal exertion. He also developed shaking chills. Two days ago he went to Urgent Care in the [place] area and was found to be febrile with a fever of 103. He was sent to the ER. While at [facility] ER he apparently had rigors while being evaluated. He had blood cultures drawn, but was discharged home. His symptoms continued to worsen and he has been getting chills/rigors every 4-5 hours. He continues to medicate himself with medications such as Tylenol. He denies any chest discomfort whatsoever. We discussed this in detail. He feels a fatigue or tiredness in his chest and his entire body when he does any exertion. He also denies actual shortness of breath. He states that he just becomes so fatigued that he has to sit down and rest. At rest he feels much better. He apparently received some IV fluids overnight and then did develop some shortness of breath or hypoxia early this morning at approximately 1:33 a.m. At that time the IV fluids were discontinued and he was given some IV diuretic in the form of Lasix and his symptoms have since resolved. He continues to have fevers over the past 3-4 days. He denies any rash, skin injury/trauma, edema, palpitations, syncope, near syncope, chest pain, shortness of breath. He denies melena, hematochezia, hematuria, or other bleeding. He did have some diarrhea which started during this hospitalization. He had some overnight, which was uncontrollable while having rigors. He also had some this morning for which he was able to make it to the restroom. He has been evaluated by infectious disease. He has been started on broad-spectrum antibiotics. He was noted to have an elevated troponin, and an abnormal echo which will be discussed below. As an outpatient, Dr. Lawler has been evaluating him. He did start him on azithromycin apparently on 09 of May, yesterday for a cough with purulent sputum. REVIEW OF SYSTEMS: As above and review of systems is otherwise negative. PAST MEDICAL HISTORY: 1. Hypertension. 2. Dyslipidemia. HOME MEDICATIONS: Include 1. Losartan 100 mg daily. 2. Simvastatin 20 mg daily. INPATIENT MEDICATIONS: Include ceftriaxone 1 gram IV q. 24 hours, doxycycline 100 mg IV b.i.d., heparin drip per protocol, vancomycin IV. He also received potassium chloride. ALLERGIES: No known drug allergies. SOCIAL HISTORY: Denies tobacco, alcohol or drug use. He is and lives with his . He also at home is their adopted granddaughter who is 10 years of age. They have 2 grown children, a daughter and a younger son. 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 His has metastatic breast cancer. He is currently alone in his hospital room. FAMILY HISTORY: Father had an PA in his 60s. PHYSICAL EXAMINATION: VITAL SIGNS: Temperature 37.8 degrees, heart rate 107 beats per minute, respiration rate 20, blood pressure 142/85 mmHg; however, his blood pressure has mostly been normotensive. Oxygen saturation 92% on room air, T-max 39.1. I's and O's are incomplete. Weight 87.9 kg. GENERAL: No acute distress. He is alert and oriented. HEENT: Anicteric sclerae. NECK: No appreciable JVD. No bruits. Normal carotid upstrokes bilaterally. CARDIAC EXAMINATION: PMI was nondisplaced. There was no ventricular heave. Regular, normal S1, S2. No audible murmurs, rubs or gallops. LUNGS: Clear to auscultation bilaterally without wheezes, rales or rhonchi. ABDOMEN: Soft, nontender, nondistended, normoactive bowel sounds, no bruits noted. EXTREMITIES: No cyanosis or pitting edema. No palpable cords. 2+ radial pulses bilaterally. 2+ dorsalis pedis pulses bilaterally. No splinter hemorrhages, Janeway lesions or Osler's nodes noted. PSYCHIATRIC: Affect appears appropriate. DATA: Echocardiogram images were personally reviewed. Mildly reduced LV systolic function. Mildly dilated left ventricle. Estimated EF 45%. Severe hypokinesis to akinesis of the inferior wall, otherwise, mild global hypokinesis. Type 2 diastolic dysfunction. Mild MR. Technically difficult study. ECG personally reviewed. Sinus rhythm, 91 beats per minute. Incomplete right bundle-branch block. CT chest report reviewed. No evidence of pulmonary embolus. Lungs reported is clear by radiology. Chest x-ray image from this morning personally reviewed. No obvious infiltrate. Pulmonary vasculature does appear to be mildly prominent. Radiology as reported pulmonary vascular congestion. LABORATORY DATA: White blood cell count 15.24, hemoglobin 12.5, platelets 216. Sodium 142, potassium 3.6, BUN 8, creatinine 0.97, troponin 2.27, initially was 0.52, trended down to 0.467 and then 2.27. C-reactive protein elevated at 13, AST 27, ALT 30, magnesium 2.2. INR 1.1. Influenza A and B negative. [place] screen negative. Blood culture is pending. Sputum culture is pending. ASSESSMENT AND PLAN: 1. Elevated troponins: This would indicate some myocardial injury. He did not present with acute coronary syndrome. This could be a myocardial infarction from demand ischemia, perhaps in the setting of underlying ischemic heart disease, although he has no symptoms as an outpatient to suggest such, but does have risk factors. It also could represent myocarditis. He did have a viral illness 2-3 weeks ago. Heparin drip has been started by primary service. Could continue for a total of 48 hours. If myocarditis is the etiology, supportive care would be recommended with standard cardiomyopathy medications. 2. Cardiomyopathy: He does have mildly reduced systolic function with regional wall motion abnormalities. Will likely repeat an echo later this hospitalization with IV echo contrast to better delineate wall motion and left ventricular systolic function. Etiology uncertain. Could be myocarditis. Could also represent underlying ischemic heart disease, although he is not presenting with acute coronary syndrome. Metoprolol succinate will be initiated. If blood pressure allows, would resume at least some dose of his home ARB. He appears euvolemic on exam. 3. Fever/rigors: He has fevers and chills. He also has leukocytosis and elevated CRP. There is concern for infectious etiology, he is currently on broad-spectrum antibiotics and has been seen by the infectious disease specialist. Blood cultures from [facility] will be requested at this time as they have been drawn for approximately 36 hours at this point. No visualized vegetation on echocardiogram; however, cannot be ruled out on transthoracic study and image quality was poor to fair. Further workup is pending as per infectious disease and the hospitalist service. Would not expect this degree of fever and also rigors simply from myocardial infarction. 4. Hypertension: Beta-quoc started as above for cardiomyopathy. Will resume a lower dose losartan. He takes 100 mg at home, but will start off 25 mg in case he develops some blood pressure issues with possible infection. 5. Disposition: Cardiology will continue to follow. Thank you for allowing me to participate in care of Mr. Amezquita. NADIA
--- NOTE | 2016-05-10 16:34 | Pharmacy Progress Note ---
Pharmacy Antibiotic Consult Date of Service: May 10, 2016. Pharmacy Dosing Scope Pharmacy is consulted to initiate Vancomycin IV dosing therapy, order appropriate labs and adjust drug dose/frequency. Subjective The patient is a 55 year old male admitted on May 09, 2016 at 21:11. Objective Height (Feet): 5 Height (Inches): 7.00 Weight (Kilograms): 87.900 Lab Results (24hrs): Laboratory Tests Test 05/09/16 18:29 05/10/16 05:08 BUN/Creatinine Ratio 7.2 8.3 Blood Urea Nitrogen 8 mg/dl 8 mg/dl Creatinine 1.10 mg/dl 0.97 mg/dl White Blood Count 14.08 K/uL 15.24 K/uL Red Blood Count 4.17 M/uL Hemoglobin 13.4 g/dL Hematocrit 38.7 % Mean Corpuscular Volume 92.8 fL Mean Corpuscular Hemoglobin 32.1 pg Mean Corpuscular Hemoglobin Concent 34.6 g/dl Platelet Count 231 K/uL Mean Platelet Volume 9.1 fL Neutrophils (%) (Auto) 69.5 % Lymphocytes (%) (Auto) 13.2 % Monocytes (%) (Auto) 16.9 % Eosinophils (%) (Auto) 0.1 % Basophils (%) (Auto) 0.1 % Neutrophils # (Auto) 9.79 K/uL Lymphocytes # (Auto) 1.86 K/uL Monocytes # (Auto) 2.38 K/uL Eosinophils # (Auto) 0.01 K/uL Basophils # (Auto) 0.01 K/uL Micro Results: Item Value Date Time MRSA DNA Surveillance Screen - Final Complete 05/10/16 0900 Nasal Specimen Negative for MRSA by DNA Probe Gram Stain Received 05/10/16 0830 Sputum Expectorated Sputum Pending Blood Culture Received 05/09/16 1833 Blood Pending Blood Culture Received 05/09/16 1829 Blood Pending Assessment & Plan Assessment * 55 y/o M on empiric IV Vancomycin, Doxycycline (not a consult), and Ceftriaxone (not a consult) for possible pneumonia. There is also a question of whether he has endocarditis. Infectious etiology is unclear at this time. ID is consulted. * Renal function appears to be at baseline. Most recent sCr = 0.97 mg/dL with estimated CrCl ~91 mL/min. Estimated pharmacokinetic parameters: * Ke ~0.08/hr, T1/2 ~8.7 hrs * Patient received Vancomycin 1000mg IV x 1, followed by 1350mg IV x 1 to equal a total loading dose of ~27mg/kg. Plan * Initiate Vancomycin 1300mg (~15mg/kg) IV q10 * Goal Vancomycin trough 15-20 mcg/mL * Trough level ordered for 05/11 @ 0730 (prior to the 3rd dose and therefore not reflective of steady state, but would like to assess dosing regimen earlier due to complicated clinical picture) Pharmacy will continue to follow and will adjust dose/frequency as necessary. Thank you
--- NOTE | 2016-05-10 17:27 | Progress Note ---
Subjective Date of Service: May 10, 2016. Subjective Pt evaluation today including: conversation w/ patient, conversation w/ family , physical exam, chart review, lab review, review of studies, review of inpatient medication list Problem List Medical Problems: (1) Fever Status: Acute (2) Hypertension Status: Chronic Review of Systems Constitutional: + chills, + fatigue, + fever, + sweats Eyes: No diplopia, No discharge, No eye pain, No problem reported, No redness, No see HPI, No worsening of vision ENT: No dental problems, No hearing loss, No nasal symptoms, No problem reported, No see HPI, No sore throat, No tinnitus, No trouble swallowing, No unusual epistaxis Respiratory: + shortness of breath Cardiac: + chest pain, No PND, No claudication, No edema, No orthopnea, No palpitations, No problem reported, No see HPI Abdomen: + diarrhea, No GI bleeding, No constipation, No nausea, No pain, No problem reported, No see HPI, No vomiting Musculoskeletal: No calf pain, No joint pain, No muscle pain, No problem reported, No see HPI, No swelling Male : No dysuria, No hematuria, No incontinence, No nocturia more than once/ night, No problem reported, No see HPI, No sexual dysfunction, No slowing stream , No urinary frequency Neurologic: No balance problems, No memory loss, No numbness/tingling, No paralysis, No problem reported, No see HPI, No vertigo, No weakness Psychiatric: No anhedonism, No anxiety, No depression symptoms, No insomnia, No problem reported, No see HPI, No substance abuse Heme: No abnormal bleeding/bruising, No clotting problems, No night sweats, No problem reported, No see HPI, No swollen lymph nodes Endo: No excessive thirst, No excessive urination, No fatigue, No problem reported, No see HPI Skin: No bleeding, No color change, No itch, No new/changing skin lesions, No problem reported, No rash, No see HPI Objective Vital Signs Date Time Temp Pulse Resp B/P Pulse Ox O2 Delivery O2 Flow Rate FiO2 05/10/16 16:00 Nasal Cannula 2.0 05/10/16 15:23 104 20 92 Nasal Cannula 2.0 05/10/16 15:19 39.4 106 22 120/66 94 Nasal Cannula 2.0 05/10/16 14:38 36.8 2/18/17 12:00 Room Air 05/10/16 11:39 37.8 107 20 142/85 92 Room Air 05/10/16 11:09 95 20 94 Room Air 05/10/16 08:03 36.9 114 22 130/71 95 Room Air 05/10/16 08:00 Room Air 05/10/16 07:29 95 22 90 Room Air 05/10/16 04:00 Nasal Cannula 3.0 05/10/16 03:12 37.9 105 24 106/68 94 Nasal Cannula 4.0 05/10/16 02:40 38.2 93 Nasal Cannula 4.0 05/10/16 01:56 99 28 142/77 94 Nasal Cannula 4.0 05/10/16 01:33 113 24 84 Nasal Cannula 4.0 05/10/16 01:22 39.1 114 28 154/81 89 Nasal Cannula 4.0 05/10/16 00:00 Room Air 05/09/16 23:28 36.8 86 20 116/73 95 Room Air 05/09/16 22:20 36.7 93 18 109/72 95 Room Air 05/09/16 21:55 37.9 78 20 106/63 97 05/09/16 20:46 78 20 96 Room Air 05/09/16 20:39 37.9 80 18 106/65 95 Room Air 05/09/16 19:27 95 Room Air 05/09/16 19:27 39.0 87 18 121/63 95 Room Air 05/09/16 18:50 88 05/09/16 17:40 38.4 91 18 121/70 97 Room Air Physical Exam General Appearance: WD/WN, + mild distress Eyes: normal inspection, EOMI ENT: normal ENT inspection, hearing grossly normal Neck: supple Respiratory/Chest: chest non-tender, lungs clear, normal breath sounds, no respiratory distress, no accessory muscle use Cardiovascular: regular rate, rhythm, no edema, no gallop, no JVD, no murmur Abdomen: normal bowel sounds, non tender, soft, no organomegaly, no pulsatile mass Extremities: normal range of motion, non-tender, normal inspection, no pedal edema 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, no motor/sensory deficits, alert, normal mood/affect, oriented x 3 Skin: normal color, warm/dry, no rash Laboratory Results Last 24 Hours Test 05/09/16 18:29 05/09/16 18:38 05/09/16 18:55 05/09/16 23:25 White Blood Count 14.08 K/uL Red Blood Count 4.17 M/uL Hemoglobin 13.4 g/dL Hematocrit 38.7 % Mean Corpuscular Volume 92.8 fL Mean Corpuscular Hemoglobin 32.1 pg Mean Corpuscular Hemoglobin Concent 34.6 g/dl Platelet Count 231 K/uL Mean Platelet Volume 9.1 fL Neutrophils (%) (Auto) 69.5 % Lymphocytes (%) (Auto) 13.2 % Monocytes (%) (Auto) 16.9 % Eosinophils (%) (Auto) 0.1 % Basophils (%) (Auto) 0.1 % Neutrophils # (Auto) 9.79 K/uL Lymphocytes # (Auto) 1.86 K/uL Monocytes # (Auto) 2.38 K/uL Eosinophils # (Auto) 0.01 K/uL Basophils # (Auto) 0.01 K/uL RDW Standard Deviation 46.7 fL RDW Coefficient of Variation 13.6 % Immature Granulocyte % (Auto) 0.2 % Immature Granulocyte # (Auto) 0.03 K/uL Prothrombin Time 11.7 SECONDS Prothromb Time International Ratio 1.1 Activated Partial Thromboplast Time 29.2 SECONDS Partial Thromboplastin Ratio 1.1 Sodium Level 138 mmol/L Potassium Level 3.3 mmol/L Chloride Level 101 mmol/L Carbon Dioxide Level 25 mmol/L Anion Gap 12.0 mmol/L Blood Urea Nitrogen 8 mg/dl Creatinine 1.10 mg/dl Est Creatinine Clear Calc Drug Dose 81.1 ml/min Estimated GFR () 86.5 Estimated GFR (Non- 74.6 BUN/Creatinine Ratio 7.2 Random Glucose 95 mg/dl Calcium Level 8.0 mg/dl Total Bilirubin 1.2 mg/dl Aspartate Amino Transf (AST/SGOT) 27 U/L Alanine Aminotransferase (ALT/SGPT) 30 U/L Alkaline Phosphatase 48 U/L Total Creatine Kinase 310 U/L Creatine Kinase MB 1.1 ng/ml Creatine Kinase MB Ratio 0.4 Troponin I 0.520 ng/ml 0.467 ng/ml Total Protein 7.9 gm/dl Albumin 3.4 gm/dl Globulin 4.5 gm/dl Albumin/Globulin Ratio 0.8 Monoscreen NEG Bedside Lactic Acid Venous 0.74 mmol/L Urine Color YELLOW Urine Appearance CLEAR Urine pH 5.5 Urine Specific [place] 1.013 Urine Protein 2+ Urine Glucose (UA) NEG Urine Ketones TRACE Urine Occult Blood 3+ Urine Nitrite NEG Urine Bilirubin NEG Urine Urobilinogen NEG Urine Leukocyte Esterase NEG Urine WBC (Auto) 1-5 /hpf Urine RBC (Auto) 0-4 /hpf Urine Hyaline Casts (Auto) 1-5 /lpf Urine Epithelial Cells (Auto) 10-20 /lpf Urine Bacteria (Auto) NEG Influenza Type A (RT-PCR) Neg for Influ A Influenza Type B (RT-PCR) Neg for Influ B C-Reactive Protein 13.00 mg/dl Test 05/10/16 05:08 05/10/16 13:08 White Blood Count 15.24 K/uL Red Blood Count 4.02 M/uL Hemoglobin 12.5 g/dL Hematocrit 36.5 % Mean Corpuscular Volume 90.8 fL Mean Corpuscular Hemoglobin 31.1 pg Mean Corpuscular Hemoglobin Concent 34.2 g/dl RDW Standard Deviation 45.0 fL RDW Coefficient of Variation 13.6 % Platelet Count 216 K/uL Mean Platelet Volume 9.0 fL Activated Partial Thromboplast Time 44.6 SECONDS 50.6 SECONDS Partial Thromboplastin Ratio 1.7 1.9 Sodium Level 142 mmol/L Potassium Level 3.6 mmol/L Chloride Level 112 mmol/L Carbon Dioxide Level 22 mmol/L Anion Gap 8.0 mmol/L Blood Urea Nitrogen 8 mg/dl Creatinine 0.97 mg/dl Est Creatinine Clear Calc Drug Dose 90.9 ml/min Estimated GFR () 100.7 Estimated GFR (Non- 86.9 BUN/Creatinine Ratio 8.3 Random Glucose 121 mg/dl Calcium Level 7.5 mg/dl Magnesium Level 2.2 mg/dl Troponin I 2.270 ng/ml Assessment and Plan 55-year-old gentleman P/W progressive fevers/chills. previous work up in [place] was negative. 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 Severe hypokinesis to akinesis of the inferior wall, otherwise, mild global hypokinesis. Type 2 diastolic dysfunction. Mild MR) continue low dose lasix when stable start AARBs/B quoc HTN currently on metoprolol when stable add AARBs Dyslipidemia will check lipids and HgbA1c to stratify his risk DVT prophylaxis
[2016-05-11] VITALS (16 sets, daily range): BP systolic 117–144; BP diastolic 65–81; PULSE 91–104; TEMP 36.7–39.5; O2SAT 90–96
[2016-05-11] MEDS: CEFTRIAXONE SOD INJ 1 GM in DEXTROSE 5% ADD-VANTAGE 50ML 50 ML IV SCH ×2 (00:15→23:52)
[2016-05-11 07:17] LABS: BASO % 0.1 %; BASO ABS # 0.01 K/uL (0-0.2); COMPLETE YES; HEMATOCRIT 37.1 % (42-52); IG% 0.3 %; LYMPH ABS # 1.28 K/uL (1.2-3.4); MEAN CELL VOLUME 92.5 fL (80-100); MEAN CORPUSCULAR HEMOGLOBIN 31.4 pg (25-34); MEAN PLATELET VOLUME 9.1 fL (7.4-10.4); MONO % 14.2 %; NEUT % 77.4 %; PLATELET COUNT 253 K/uL (130-400); RED BLOOD COUNT 4.01 M/uL (4.7-6.1); WHITE BLOOD COUNT 15.98 K/uL (4.8-10.8)
[2016-05-11] MEDS: CALCIUM CARBONATE 1250MG TAB PO SCH ×2 (07:28→20:54)
[2016-05-11] MEDS: METOPROLOL SUCC 25MG EXT REL TAB PO SCH (07:28)
[2016-05-11] MEDS ORDERED: VANCOMYCIN TROUGH ONE (07:30)
[2016-05-11] MEDS: ACETAMINOPHEN 325 MG TAB PO PRN ×2 (07:31→15:42)
[2016-05-11] MEDS: DOXYCYCLINE IV 100 MG in DEXTROSE 5% 100ML 100 ML IV SCH ×2 (07:33→20:54)
[2016-05-11 07:38] LABS: INR 1.1 (0.9-1.1); PARTIAL THROMBOPLASTIN RATIO 1.9; PROTHROMBIN TIME (PATIENT) 11.8 SECONDS (9.0-12.0)
[2016-05-11] MEDS: ALBUT/IPRATROP 3MG/0.5MG NEB 3 ML VIAL INH SCH ×4 (07:47→20:30)
[2016-05-11 07:48] LABS: BUN/CREATININE RATIO 6.8 (10-20); CALCIUM 7.9 mg/dl (8.5-10.1); CREATININE 0.89 mg/dl (0.60-1.40); MAGNESIUM 2.3 mg/dl (1.8-2.4); POTASSIUM 3.9 mmol/L (3.5-5.1)
[2016-05-11 08:07] LABS: ALB/GLOB RATIO 0.6 (0.9-2); CHOLESTEROL/HDL RATIO 6.4
[2016-05-11] MEDS: VANCOMYCIN INJ 1,300 MG in SODIUM CHLORIDE 0.9% 250ML 250 ML IV SCH (09:43)
[2016-05-11] MEDS: HEPARIN 25,000 UNIT/500ML D5W 500 ML IV PRN (09:44)
--- NOTE | 2016-05-11 10:14 | Pharmacy Progress Note ---
Pharmacy Antibiotic Prog Note Date of Service: May 11, 2016. Subjective: The patient is currently receiving Vancomycin 1300 mg IV every 10 hours. The patient is currently on day # 3 of Vancomycin IV therapy. Objective: Height (Feet): 5 Height (Inches): 7.00 Weight (Kilograms): 87.900 Levels: Item Value Date Time Vancomycin Level Trough 12.0 mcg/ml 05/11/16 0705 Lab Results (24hrs): Laboratory Tests Test 05/11/16 07:05 BUN/Creatinine Ratio 6.8 Blood Urea Nitrogen 6 mg/dl Creatinine 0.89 mg/dl White Blood Count 15.98 K/uL Red Blood Count 4.01 M/uL Hemoglobin 12.6 g/dL Hematocrit 37.1 % Mean Corpuscular Volume 92.5 fL Mean Corpuscular Hemoglobin 31.4 pg Mean Corpuscular Hemoglobin Concent 34.0 g/dl Platelet Count 253 K/uL Mean Platelet Volume 9.1 fL Neutrophils (%) (Auto) 77.4 % Lymphocytes (%) (Auto) 8.0 % Monocytes (%) (Auto) 14.2 % Eosinophils (%) (Auto) 0.0 % Basophils (%) (Auto) 0.1 % Neutrophils # (Auto) 12.37 K/uL Lymphocytes # (Auto) 1.28 K/uL Monocytes # (Auto) 2.27 K/uL Eosinophils # (Auto) 0.00 K/uL Basophils # (Auto) 0.01 K/uL Micro Results: Item Value Date Time MRSA DNA Surveillance Screen - Final Complete 05/10/16 0900 Nasal Specimen Negative for MRSA by DNA Probe Gram Stain - Final Resulted 05/10/16 0830 Sputum Expectorated Sputum Blood Culture - Preliminary Resulted 05/09/16 1833 Blood NO GROWTH TO DATE. Blood Culture - Preliminary Resulted 05/09/16 1829 Blood NO GROWTH TO DATE. Assessment & Plan: Assessment * 55 y/o M on empiric IV Vancomycin, Doxycycline (not a consult), and Ceftriaxone (not a consult) for possible pneumonia. There is also a question of whether he has endocarditis. Infectious etiology is unclear at this time. Patient continues to be febrile with leukocytosis. All cultures are negative to date. ID is also following patient. * Goal Vancomycin trough 15-20 mcg/mL * Trough level on 05/11 @ 0705 (appropriately drawn) of 12 mcg/mL is subtherapeutic. Even though this is an early level not reflective of steady state, patient is very unlikely to achieve adequate concentrations on current regimen. Furthermore, patient remains very sick and does not seem to be improving. * Will maintain the same dosing interval and increase the dose by ~15% to target a higher trough. Plan * Increase Vancomycin to 1500mg (~17mg/kg) IV q10 * Recheck trough level on 05/13 @ 0730 (prior to the 5th dose and therefore should be reflective of steady state) Pharmacy will continue to follow and will adjust dose/frequency as necessary. Thank you
--- NOTE | 2016-05-11 10:31 | Progress Note ---
Subjective Date of Service: May 11, 2016. Subjective remains with fever, cardio following. continues on broad spectrum abx. blood cultures negative to date, sputum pending. no veg on tte Problem List Medical Problems: (1) Fever Status: Acute (2) Hypertension Status: Chronic Objective Vital Signs Date Time Temp Pulse Resp B/P Pulse Ox O2 Delivery O2 Flow Rate FiO2 05/11/16 08:50 38.8 05/11/16 08:41 39.3 05/11/16 08:00 Nasal Cannula 2.0 05/11/16 07:56 39.5 104 20 138/70 95 Room Air 05/11/16 07:47 99 20 90 Nasal Cannula 2.0 05/11/16 04:00 90 Nasal Cannula 2.0 05/11/16 03:45 37.6 102 18 139/79 90 Nasal Cannula 2.0 05/11/16 00:01 95 Nasal Cannula 2.0 05/10/16 23:12 38.4 106 21 153/84 91 Nasal Cannula 2.0 05/10/16 20:00 Room Air 05/10/16 19:59 96 20 95 Nasal Cannula 2.0 05/10/16 19:30 36.9 98 18 126/78 96 Nasal Cannula 2.0 05/10/16 17:07 38.0 05/10/16 16:00 Nasal Cannula 2.0 05/10/16 15:23 104 20 92 Nasal Cannula 2.0 05/10/16 15:19 39.4 106 22 120/66 94 Nasal Cannula 2.0 05/10/16 14:38 36.8 05/10/16 12:00 Room Air 05/10/16 11:39 37.8 107 20 142/85 92 Room Air 05/10/16 11:09 95 20 94 Room Air Laboratory Results Item Value Date Time Blood Culture - Preliminary Resulted 05/09/16 1829 Blood NO GROWTH TO DATE. Blood Culture - Preliminary Resulted 05/09/16 1833 Blood NO GROWTH TO DATE. Last 24 Hours Test 05/10/16 13:08 05/10/16 18:05 05/10/16 18:30 05/10/16 19:05 Activated Partial Thromboplast Time 50.6 SECONDS Partial Thromboplastin Ratio 1.9 Influenza Type A Antigen Neg for Influ A Influenza Type B Antigen Neg for Influ B Procalcitonin 0.37 ng/mL Test 2/19/17 01:00 05/11/16 07:05 Total Creatine Kinase 399 U/L 394 U/L Troponin I 1.340 ng/ml 1.070 ng/ml White Blood Count 15.98 K/uL Red Blood Count 4.01 M/uL Hemoglobin 12.6 g/dL Hematocrit 37.1 % Mean Corpuscular Volume 92.5 fL Mean Corpuscular Hemoglobin 31.4 pg Mean Corpuscular Hemoglobin Concent 34.0 g/dl Platelet Count 253 K/uL Mean Platelet Volume 9.1 fL Neutrophils (%) (Auto) 77.4 % Lymphocytes (%) (Auto) 8.0 % Monocytes (%) (Auto) 14.2 % Eosinophils (%) (Auto) 0.0 % Basophils (%) (Auto) 0.1 % Neutrophils # (Auto) 12.37 K/uL Lymphocytes # (Auto) 1.28 K/uL Monocytes # (Auto) 2.27 K/uL Eosinophils # (Auto) 0.00 K/uL Basophils # (Auto) 0.01 K/uL RDW Standard Deviation 47.0 fL RDW Coefficient of Variation 13.9 % Immature Granulocyte % (Auto) 0.3 % Immature Granulocyte # (Auto) 0.05 K/uL Prothrombin Time 11.8 SECONDS Prothromb Time International Ratio 1.1 Activated Partial Thromboplast Time 48.8 SECONDS Partial Thromboplastin Ratio 1.9 Sodium Level 140 mmol/L Potassium Level 3.9 mmol/L Chloride Level 104 mmol/L Carbon Dioxide Level 26 mmol/L Anion Gap 10.0 mmol/L Blood Urea Nitrogen 6 mg/dl Creatinine 0.89 mg/dl Est Creatinine Clear Calc Drug Dose 98.1 ml/min Estimated GFR () 110.8 Estimated GFR (Non- 95.6 BUN/Creatinine Ratio 6.8 Random Glucose 108 mg/dl Calcium Level 7.9 mg/dl Magnesium Level 2.3 mg/dl Total Bilirubin 0.7 mg/dl Aspartate Amino Transf (AST/SGOT) 32 U/L Alanine Aminotransferase (ALT/SGPT) 25 U/L Alkaline Phosphatase 44 U/L Total Protein 6.9 gm/dl Albumin 2.6 gm/dl Globulin 4.3 gm/dl Albumin/Globulin Ratio 0.6 Triglycerides Level 131 mg/dl Cholesterol Level 127 mg/dl HDL Cholesterol 20 mg/dl LDL Cholesterol, Calculated 81 mg/dl VLDL Cholesterol, Calculated 26 mg/dl Cholesterol/HDL Ratio 6.4 Vancomycin Level Trough 12.0 mcg/ml Assessment and Plan (1) Fever Status: Acute Assessment & Plan: infectious vs noninfectious, continue abx, follow cultures
--- NOTE | 2016-05-11 11:15 | CARDIOLOGY PROGRESS NOTE ---
DATE: 05/11/2016 TIME: 10:33 a.m. SUBJECTIVE: All in all, he says he feels a little bit better. He is now using a cooling blanket. He has not had any further rigors or shaking chills, but when he took a break for his cooling blanket this morning, he was once again febrile. His exertional fatigue was a bit better when he used the restroom earlier today. He denies chest pain, shortness of breath, orthopnea, syncope, near syncope, or palpitations. OBJECTIVE: VITAL SIGNS: Temperature 38.8 degrees. T-max 39.5. Heart rate 104 beats per minute, respiratory rate 20, blood pressure 138/70 mmHg, and oxygen saturation 95% on 2 liters per nasal cannula. I's and O's positive 1 liter yesterday. Weight is 87.9 kg. GENERAL: No acute distress. He is alert. NECK: Mild JVD. CARDIAC EXAM: No ventricular heave, regular, normal S1 and S2. No murmurs, rubs, or gallops were auscultated. LUNGS: Decreased breath sounds at bilateral bases with bibasilar rales. ABDOMEN: Soft, nontender, and nondistended. Normoactive bowel sounds. No bruits noted. EXTREMITIES: No cyanosis or edema. No palpable cords. PSYCHIATRIC: Affect appears appropriate. MEDICATIONS: Include heparin drip per protocol, metoprolol succinate 25 mg daily, vancomycin IV, and ceftriaxone 1 gram IV q. 24 hours. Telemetry strips reviewed. He remains in sinus rhythm. No significant arrhythmia noted. Chart reviewed. LABORATORY DATA: White blood cell count is 15.99, hemoglobin 12.6, and platelets 253. Sodium 140, potassium 3.9, BUN 6, creatinine 0.89 and calcium 7.9. Troponin peaked at 2.27 and has since trended downward. Albumin 2.6. LDL 81, HDL 20, and triglycerides 131. Procalcitonin level was 0.37. Urine legionella antigen is pending. Blood culture is negative to date x2. [facility] was personally contacted. Blood cultures from 05/08/2016 remain negative to date. Sputum culture performed here is pending. ASSESSMENT AND PLAN: 1. Fever with chills: Etiology still uncertain. Awaiting further infectious workup such as cultures to be finalized. Would not expect a noninfectious cardiac issue to cause such high temperatures with rigors. He does appear to feel mildly improved on antibiotic therapy. Appreciate infectious disease consult. 2. Elevated troponins: He did not present with acute coronary syndrome. This would indicate, however, some myocardial injury. Fortunately, troponin levels have peaked and were only mildly elevated. He does have wall motion abnormalities on echo. He also had a viral illness 2 or 3 weeks ago. This could represent demand ischemia in the setting of fevers and chills with or without underlying CAD versus myocarditis. Would continue heparin drip for a total of only 48 hours if being used only for cardiac indication and therefore that could be discontinued overnight. 3. Cardiomyopathy: He does have mildly reduced systolic function. We will likely repeat an echo at some point during this hospitalization with IV echo contrast. Metoprolol succinate was initiated yesterday. He has not been hypotensive and therefore, we will resume at least some portion of his outpatient ARB. Etiology of his reduced LV systolic function is unclear at this time. Cannot rule out ischemic heart disease versus myocarditis versus other etiology. 4. Hypertension: Blood pressure has been adequately controlled. We will start lower dose losartan. He also has received IV fluids while here in his positive net balance of approximately 2.8 liters. I will give a low dose diuretic today given his elevated JVD and breath rounds. 5. Disposition: Cardiology will continue to follow.
[2016-05-11] MEDS ORDERED: FUROSEMIDE INJ 20 MG in SYRINGE 0 ML IV ONE (11:30)
[2016-05-11] MEDS ORDERED: LOSARTAN POTASSIUM 25 MG TAB PO ONE (13:00)
--- NOTE | 2016-05-11 15:52 | Progress Note ---
Subjective Date of Service: May 11, 2016. Subjective Pt evaluation today including: conversation w/ patient, physical exam, chart review, lab review, review of inpatient medication list Problem List Medical Problems: (1) Fever Status: Acute (2) Hypertension Status: Chronic Review of Systems Constitutional: + chills, + fever Eyes: No diplopia, No discharge, No eye pain, No problem reported, No redness, No see HPI, No worsening of vision ENT: No dental problems, No hearing loss, No nasal symptoms, No problem reported, No see HPI, No sore throat, No tinnitus, No trouble swallowing, No unusual epistaxis Respiratory: + shortness of breath, No cough, No dyspnea at rest, No dyspnea on exertion, No hemoptysis, No problem reported, No see HPI, No sputum, No wheezing Cardiac: No PND, No chest pain, No claudication, No edema, No orthopnea, No palpitations, No problem reported, No see HPI Abdomen: No GI bleeding, No constipation, No diarrhea, No nausea, No pain, No problem reported, No see HPI, No vomiting Male : No dysuria, No hematuria, No incontinence, No nocturia more than once/ night, No problem reported, No see HPI, No sexual dysfunction, No slowing stream , No urinary frequency Neurologic: No balance problems, No memory loss, No numbness/tingling, No paralysis, No problem reported, No see HPI, No vertigo, No weakness Psychiatric: No anhedonism, No anxiety, No depression symptoms, No insomnia, No problem reported, No see HPI, No substance abuse Heme: No abnormal bleeding/bruising, No clotting problems, No night sweats, No problem reported, No see HPI, No swollen lymph nodes Skin: No bleeding, No color change, No itch, No new/changing skin lesions, No problem reported, No rash, No see HPI Objective Vital Signs Date Time Temp Pulse Resp B/P Pulse Ox O2 Delivery O2 Flow Rate FiO2 05/11/16 12:11 36.7 96 20 117/68 96 Room Air 05/11/16 12:00 Nasal Cannula 2.0 05/11/16 11:20 91 20 90 Nasal Cannula 2.0 05/11/16 08:50 38.8 05/11/16 08:41 39.3 05/11/16 08:00 Nasal Cannula 2.0 05/11/16 07:56 39.5 104 20 138/70 95 Room Air 05/11/16 07:47 99 20 90 Nasal Cannula 2.0 05/11/16 04:00 90 Nasal Cannula 2.0 05/11/16 03:45 37.6 102 18 139/79 90 Nasal Cannula 2.0 05/11/16 00:01 95 Nasal Cannula 2.0 05/10/16 23:12 38.4 106 21 153/84 91 Nasal Cannula 2.0 05/10/16 20:00 Room Air 05/10/16 19:59 96 20 95 Nasal Cannula 2.0 05/10/16 19:30 36.9 98 18 126/78 96 Nasal Cannula 2.0 05/10/16 17:07 38.0 05/10/16 16:00 Nasal Cannula 2.0 Physical Exam General Appearance: WD/WN, no apparent distress Eyes: normal inspection, EOMI ENT: normal ENT inspection, hearing grossly normal Neck: supple Respiratory/Chest: chest non-tender, lungs clear, normal breath sounds, no respiratory distress Cardiovascular: regular rate, rhythm, no edema, no gallop, no JVD Abdomen: normal bowel sounds, non tender, soft Extremities: normal range of motion, non-tender, normal inspection 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, no motor/sensory deficits, alert, normal mood/affect, oriented x 3 Skin: normal color, warm/dry, no rash Laboratory Results Last 24 Hours Test 05/10/16 18:05 05/10/16 18:30 05/10/16 19:05 05/11/16 01:00 Influenza Type A Antigen Neg for Influ A Influenza Type B Antigen Neg for Influ B Procalcitonin 0.37 ng/mL Total Creatine Kinase 399 U/L Troponin I 1.340 ng/ml Test 05/11/16 07:05 White Blood Count 15.98 K/uL Red Blood Count 4.01 M/uL Hemoglobin 12.6 g/dL Hematocrit 37.1 % Mean Corpuscular Volume 92.5 fL Mean Corpuscular Hemoglobin 31.4 pg Mean Corpuscular Hemoglobin Concent 34.0 g/dl Platelet Count 253 K/uL Mean Platelet Volume 9.1 fL Neutrophils (%) (Auto) 77.4 % Lymphocytes (%) (Auto) 8.0 % Monocytes (%) (Auto) 14.2 % Eosinophils (%) (Auto) 0.0 % Basophils (%) (Auto) 0.1 % Neutrophils # (Auto) 12.37 K/uL Lymphocytes # (Auto) 1.28 K/uL Monocytes # (Auto) 2.27 K/uL Eosinophils # (Auto) 0.00 K/uL Basophils # (Auto) 0.01 K/uL RDW Standard Deviation 47.0 fL RDW Coefficient of Variation 13.9 % Immature Granulocyte % (Auto) 0.3 % Immature Granulocyte # (Auto) 0.05 K/uL Prothrombin Time 11.8 SECONDS Prothromb Time International Ratio 1.1 Activated Partial Thromboplast Time 48.8 SECONDS Partial Thromboplastin Ratio 1.9 Sodium Level 140 mmol/L Potassium Level 3.9 mmol/L Chloride Level 104 mmol/L Carbon Dioxide Level 26 mmol/L Anion Gap 10.0 mmol/L Blood Urea Nitrogen 6 mg/dl Creatinine 0.89 mg/dl Est Creatinine Clear Calc Drug Dose 98.1 ml/min Estimated GFR () 110.8 Estimated GFR (Non- 95.6 BUN/Creatinine Ratio 6.8 Random Glucose 108 mg/dl Calcium Level 7.9 mg/dl Magnesium Level 2.3 mg/dl Total Bilirubin 0.7 mg/dl Aspartate Amino Transf (AST/SGOT) 32 U/L Alanine Aminotransferase (ALT/SGPT) 25 U/L Alkaline Phosphatase 44 U/L Total Creatine Kinase 394 U/L Troponin I 1.070 ng/ml Total Protein 6.9 gm/dl Albumin 2.6 gm/dl Globulin 4.3 gm/dl Albumin/Globulin Ratio 0.6 Triglycerides Level 131 mg/dl Cholesterol Level 127 mg/dl HDL Cholesterol 20 mg/dl LDL Cholesterol, Calculated 81 mg/dl VLDL Cholesterol, Calculated 26 mg/dl Cholesterol/HDL Ratio 6.4 Vancomycin Level Trough 12.0 mcg/ml Assessment and Plan 55-year-old gentleman P/W progressive fevers/chills. previous work up in [place] was negative. No hunting / camping / unusual exposures His initial work up showed positive troponin/myocardial hypokinesia/leukocytosis SIRS infectious versus non infectious ([place] can cause fever and leukocytosis) Infectious disease consult is appreciated Continue Vanco/CTXN/Doxycyclin as per Dr. 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 Severe hypokinesis to akinesis of the inferior wall, otherwise, mild global hypokinesis. Type 2 diastolic dysfunction. Mild MR) continue low dose lasix when stable start AARBs HTN currently on metoprolol when stable add AARBs Dyslipidemia will check lipids and HgbA1c to stratify his risk DVT prophylaxis
[2016-05-11] MEDS: VANCOMYCIN INJ 1,500 MG in SODIUM CHLORIDE 0.9% 500ML 500 ML IV SCH (17:02)
[2016-05-12] VITALS (16 sets, daily range): BP systolic 116–144; BP diastolic 71–82; PULSE 80–111; TEMP 36.5–39; O2SAT 88–99
[2016-05-12] MEDS: HEPARIN 25,000 UNIT/500ML D5W 500 ML IV PRN (01:33)
[2016-05-12] MEDS: VANCOMYCIN INJ 1,500 MG in SODIUM CHLORIDE 0.9% 500ML 500 ML IV SCH ×3 (02:03→22:06)
[2016-05-12] MEDS: ACETAMINOPHEN 325 MG TAB PO PRN ×2 (03:52→11:51)
[2016-05-12] MEDS: ALBUT/IPRATROP 3MG/0.5MG NEB 3 ML VIAL INH SCH ×4 (07:12→20:00)
[2016-05-12 07:49] LABS: ESTIMATED AVERAGE GLUCOSE 123 mg/dl; HA1C FLAG Normal (Normal)
[2016-05-12] MEDS: DOXYCYCLINE IV 100 MG in DEXTROSE 5% 100ML 100 ML IV SCH ×2 (07:51→20:29)
[2016-05-12] MEDS: LOSARTAN POTASSIUM 25 MG TAB PO SCH (07:51)
[2016-05-12] MEDS: METOPROLOL SUCC 25MG EXT REL TAB PO SCH (07:51)
[2016-05-12] MEDS: CALCIUM CARBONATE 1250MG TAB PO SCH ×2 (07:52→20:31)
[2016-05-12 07:53] LABS: PARTIAL THROMBOPLASTIN RATIO 1.7
[2016-05-12] MEDS ORDERED: HEPARIN IV BOLUS 3,000 UNIT in SYRINGE 0 ML IV ONE (08:30)
[2016-05-12 08:50] LABS: CREATININE 0.96 mg/dl (0.60-1.40)
--- NOTE | 2016-05-12 13:22 | DIAGNOSTIC IMAGING REPORT ---
CHEST ONE VIEW PORTABLE CLINICAL HISTORY: CHF COMPARISON STUDY: 05/10/2016 FINDINGS: The heart is borderline enlarged. There is improving pulmonary vascular congestion. There is no focal pulmonary consolidation. No pleural effusions are visualized.[ IMPRESSION: Resolving mild pulmonary vascular congestion Electronically signed by: Russell Dwyer M.D. 05/12/2016 1:21 PM Dictated Date/Time: 05/12/2016 1:20 PM
[2016-05-12] MEDS ORDERED: FUROSEMIDE INJ 20 MG in SYRINGE 0 ML IV ONE (14:30)
--- NOTE | 2016-05-12 14:42 | CARDIOLOGY PROGRESS NOTE ---
DATE: 05/12/2016 TIME: 14:10 p.m. SUBJECTIVE: He states he continues to feel better on a daily basis. His exertional fatigue continues to improve. He would like to ambulate more. He denies chest pain, shortness of breath, syncope, near syncope. Denies palpitations. He has not had any rigors, but felt as though they may have been coming on once. He was medicated and that resolved. He continues to use a cooling blanket. Overall, his heart rate has been trending downward. Overall, his temperature has been trending downward. OBJECTIVE: VITAL SIGNS: Temperature is 39 degrees. This is also the T-max. Heart rate was 102 during the fever. Otherwise, his heart rate has been mostly in the 80s-90s, respiration rate 20, blood pressure 144/77 mmHg; however, blood pressure has otherwise been mostly normotensive. Oxygen saturation 99% on room air. I's and O's negative 300 mL yesterday, weight is 86.7 kg. GENERAL: No acute distress. He is alert. NECK: No significant JVD. CARDIAC: No ventricular heave. Regular, normal S1, S2. No audible murmurs, rubs or gallops. LUNGS: Bibasilar rales, otherwise clear. ABDOMEN: Soft, nontender, nondistended, normoactive bowel sounds, no bruits. EXTREMITIES: No cyanosis or edema. No splinter hemorrhages, Janeway lesions or Osler's nodes. PSYCHIATRIC: Affect appears appropriate. MEDICATIONS: Include, losartan 25 mg daily, metoprolol succinate 25 mg daily, doxycycline and vancomycin. Ceftriaxone has been discontinued. LABS: Creatinine is 0.96. Chest x-ray image from today personally reviewed. No infiltrate. Radiology also reports resolving pulmonary vascular congestion. Telemetry strips personally reviewed. No ventricular arrhythmia. ASSESSMENT AND PLAN: 1. Fevers and chills: Overall, he appears to be improving, but continues to use a cooling blanket. He is improving on antibiotics. Still no identified etiology. Transesophageal echo recommended and discussed with the patient. He is agreeable to undergo the study tomorrow. Risks and benefits were discussed with him in detail. N.p.o. after midnight. 2. Elevated troponins: I had a long discussion yesterday with his at the bedside. It is not clear if this indicates myocardial injury secondary to demand ischemia versus myocarditis versus other cause. Depending on clinical course, may consider outpatient ischemic evaluation. He did not present with acute coronary syndrome. This also could represent myocarditis for which underlying ischemia would not be the etiology. Heparin drip has been discontinued. 3. Cardiomyopathy: He had mildly reduced systolic function, which will be evaluated tomorrow with transesophageal echo. Continue metoprolol succinate and losartan. Etiology still uncertain. Cannot rule out ischemic heart disease versus myocarditis or other etiology. 4. Hypertension: Blood pressure for the most part has been well controlled. He was hypertensive most recently; however, this was during a fever. Continue current regimen. Will redose Lasix 20 mg and repeat electrolytes tomorrow. 5. Disposition: Cardiology will continue to follow. Dr. Carlton was made aware of transesophageal echo tomorrow.
--- NOTE | 2016-05-12 15:06 | Progress Note ---
Subjective Date of Service: May 12, 2016. Subjective Pt evaluation today including: conversation w/ patient, conversation w/ family , physical exam, chart review, lab review pt seen in follow up, feeling better today. at bedside. His fevers are better but he is also using cooling blanket. No alberto, no rigors or sweats. no cp, no cough, sob, freed, n/v/d/abd pain. denies myalgias/arthralgias, no rash, no swollen joints. poor po intake, states food tastes metallic. remains on broad spectrum abx, tolerating well. blood and sputum cultures negative to date. TTE no veg, SUMMER scheduled for tomorrow. wbc remain elevated 15.9 05/11, no new labs. troponin 1.0, cardio following. all remaining ros reviewed and negative. Problem List Medical Problems: (1) Fever Status: Acute (2) Hypertension Status: Chronic Objective Vital Signs Date Time Temp Pulse Resp B/P Pulse Ox O2 Delivery O2 Flow Rate FiO2 05/12/16 12:05 39.0 102 20 144/77 99 05/12/16 12:00 Room Air 05/12/16 11:36 80 18 94 Room Air 05/12/16 08:00 Nasal Cannula 2.0 05/12/16 07:50 36.5 91 20 138/71 93 Nasal Cannula 2.0 05/12/16 07:12 83 18 93 Nasal Cannula 2.0 05/12/16 05:31 37.1 05/12/16 04:00 92 Nasal Cannula 2.0 05/12/16 03:42 38.5 98 20 138/76 90 Nasal Cannula 2.0 05/12/16 00:01 92 Nasal Cannula 2.0 05/11/16 23:24 37.4 100 22 144/75 93 Nasal Cannula 2.0 05/11/16 20:30 96 18 92 Nasal Cannula 2.0 05/11/16 20:00 93 Nasal Cannula 2.0 05/11/16 19:30 37.3 95 20 134/81 95 Nasal Cannula 2.0 05/11/16 17:59 37.4 05/11/16 16:35 92 20 93 Nasal Cannula 2.0 05/11/16 16:00 Nasal Cannula 2.0 05/11/16 15:39 37.9 100 18 125/65 94 Nasal Cannula 2.0 Physical Exam General Appearance: WD/WN, no apparent distress Eyes: PERRL Neck: supple Respiratory/Chest: lungs clear, normal breath sounds Cardiovascular: regular rate, rhythm, no edema Abdomen: non tender, soft Extremities: non-tender, normal inspection, no pedal edema Neurologic/Psychiatric: no motor/sensory deficits, oriented x 3 Skin: normal color Laboratory Results Item Value Date Time Blood Culture - Preliminary Resulted 05/09/16 1829 Blood NO GROWTH TO DATE. Blood Culture - Preliminary Resulted 05/09/16 1833 Blood NO GROWTH TO DATE. Gram Stain - Final Complete 05/10/16 0830 Sputum Expectorated Sputum Last 24 Hours Test 05/12/16 07:25 05/12/16 07:26 Creatinine 0.96 mg/dl Est Creatinine Clear Calc Drug Dose 90.4 ml/min Estimated GFR () 102.0 Estimated GFR (Non- 88.0 Activated Partial Thromboplast Time 42.9 SECONDS Partial Thromboplastin Ratio 1.7 Assessment and Plan (1) Fever Status: Acute Assessment & Plan: unclear etiology, doubt secondary to ischemia. Blood cultures negative. will repeat today, for summer in am, await results, tte negative for veg. will add lyme titers, ebv, parvo, coxsackie, cmv, rpr, ferdinand, esr, crp ? 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 discussed with patient at at bedside, will follow.
--- NOTE | 2016-05-12 21:34 | Progress Note ---
Subjective Subjective Date of Service: May 12, 2016. Pt evaluation today including: conversation w/ patient, conversation w/ family , physical exam, chart review, review of studies, review of inpatient medication list Notes: on cooling blanket, fevers Problem List Medical Problems: (1) Fever Status: Acute (2) Hypertension Status: Chronic Review of Systems Constitutional: + chills, + fever ENT: No hearing loss Respiratory: No cough Cardiac: No chest pain Abdomen: No pain Male : No dysuria Psychiatric: No depression symptoms Endo: No fatigue Physical Exam Vital Signs Vital Signs Past 24 Hours: Date Time Temp Pulse Resp B/P Pulse Ox O2 Delivery O2 Flow Rate FiO2 05/12/16 20:59 89 18 90 Nasal Cannula 2.0 05/12/16 19:51 37.4 89 18 116/72 98 Nasal Cannula 2.0 05/12/16 16:08 92 18 88 Room Air 05/12/16 16:00 Room Air 05/12/16 15:16 37.1 111 18 141/82 92 Room Air 05/12/16 15:06 37.4 05/12/16 12:05 39.0 102 20 144/77 99 05/12/16 12:00 Room Air 05/12/16 11:36 80 18 94 Room Air 05/12/16 08:00 Nasal Cannula 2.0 05/12/16 07:50 36.5 91 20 138/71 93 Nasal Cannula 2.0 05/12/16 07:12 83 18 93 Nasal Cannula 2.0 05/12/16 05:31 37.1 05/12/16 04:00 92 Nasal Cannula 2.0 05/12/16 03:42 38.5 98 20 138/76 90 Nasal Cannula 2.0 05/12/16 00:01 92 Nasal Cannula 2.0 05/11/16 23:24 37.4 100 22 144/75 93 Nasal Cannula 2.0 Physical Exam: General Appearance: WD/WN, no apparent distress Eyes: bilateral eyes normal inspection ENT: hearing grossly normal, pharynx normal Neck: supple, no JVD Respiratory/Chest: lungs clear, no respiratory distress Cardiovascular: no gallop, no murmur Abdomen: soft Extremities: non-tender, normal inspection Neurologic/Psychiatric: alert, oriented x 3 Skin: normal color, warm/dry Medications Medications: Current Inpatient Medications Medications (Trade) Dose Ordered Sig/Ifrah Route Start Time Stop Time Status Last Admin Dose Admin Ioversol (Optiray 320) 125 ml UD PRN IV 05/09/16 20:30 05/13/16 20:29 Calcium Carbonate (oS-Enrique 500 TAB) 1,250 mg BID PO 05/10/16 09:00 06/09/16 08:59 05/12/16 20:31 1,250 MG Acetaminophen (Tylenol Tab) 650 mg Q4H PRN PO 05/09/16 21:15 06/08/16 21:14 05/12/16 11:51 650 MG Al Hydrox/Mg Hydrox/Simethicone (Maalox Max Susp) 15 ml Q4H PRN PO 05/09/16 21:15 06/08/16 21:14 Magnesium Hydroxide (Milk Of Magnesia Susp) 30 ml Q12H PRN PO 05/09/16 21:15 06/08/16 21:14 Zolpidem Tartrate (Ambien Tab) 5 mg HSZ PRN PO 05/09/16 21:15 06/08/16 21:14 Ondansetron HCl (Zofran Inj) 4 mg Q6H PRN IV 05/09/16 21:15 06/08/16 21:14 Nitroglycerin (Nitrostat Tab) 0.4 mg UD PRN SL 05/09/16 21:15 06/08/16 21:14 Morphine Sulfate (MoRPHine SULFATE INJ) 2 mg Q30M PRN IV 05/09/16 21:15 05/23/16 21:14 Polyethylene (Miralax Powder Packet) 17 gm DAILY PRN PO 05/09/16 21:15 06/08/16 21:14 Albuterol/ Ipratropium (Duoneb) 3 ml QIDR INH 05/10/16 08:00 06/09/16 07:59 05/12/16 20:00 3 ML Albuterol Sulfate (Ventolin 0.083% 2.5MG/3ML Neb) 2.5 mg Q4H PRN INH 05/09/16 21:45 06/08/16 21:44 05/10/16 01:33 2.5 MG Vancomycin HCl 1 ea 1 ea UD PRN N/A 05/09/16 23:45 06/08/16 23:44 Doxycycline Hyclate/Dextrose (Vibramycin IV/ D5 100ml) 110 ml @ 50 mls/hr BID IV 05/10/16 09:00 05/17/16 08:59 05/12/16 20:29 50 MLS/HR Metoprolol Succinate 25 mg 25 mg QAM PO 05/11/16 09:00 06/10/16 08:59 05/12/16 07:51 25 MG Vancomycin HCl/ Sodium Chloride (Vancomycin Inj/ Nss 500ml) 530 ml @ 125 mls/hr Q10H IV 05/11/16 16:00 05/16/16 15:59 05/12/16 11:55 125 MLS/HR Losartan Potassium (coZAAR TAB) 25 mg QAM PO 05/12/16 09:00 06/11/16 08:59 05/12/16 07:51 25 MG Laboratory Data Labs: Last 24 Hours Test 05/12/16 07:25 05/12/16 07:26 05/12/16 15:20 Creatinine 0.96 mg/dl Est Creatinine Clear Calc Drug Dose 90.4 ml/min Estimated GFR () 102.0 Estimated GFR (Non- 88.0 Activated Partial Thromboplast Time 42.9 SECONDS Partial Thromboplastin Ratio 1.7 Erythrocyte Sedimentation Rate 79 mm/hr C-Reactive Protein 20.20 mg/dl Assessment and Plan A 55-year-old gentleman P/W progressive fevers/chills. previous work up in [place] was negative. No hunting / camping / unusual exposures His initial work up showed positive troponin/myocardial hypokinesia/leukocytosis SIRS infectious (bacterial, fungal, viral) versus non infectious (VA can cause fever and leukocytosis) Infectious disease consult is appreciated, awaitng repeat blood cx, checking viral cultures Continue Vanco/Doxycyclin as per Dr. Lucero awaiting Blood Cx, sputum Cx, urine legionella, RVP, lyme etc Positive troponin suspect acute viral myocarditis will need ischemic work up but when rule out infection first in case he needs a stent Band Edger consult appreciated stop heparin gtt Acute systolic/diastolic CHF / Ventricular hypokinesia Echo noted (EF 45%. Severe hypokinesis to akinesis of the inferior wall, otherwise, mild global hypokinesis. Type 2 diastolic dysfunction. Mild MR continue low dose lasix when stable start AARBs HTN currently on metoprolol when stable add AARBs Dyslipidemia will check lipids and HgbA1c to stratify his risk DVT prophylaxis
[2016-05-13] VITALS (28 sets, daily range): BP systolic 104–143; BP diastolic 56–84; PULSE 81–95; TEMP 36.8–37.9; O2SAT 92–99
[2016-05-13] MEDS ORDERED: VANCOMYCIN TROUGH ONE (07:30)
[2016-05-13 07:45] LABS: HEMATOCRIT 35.1 % (42-52); MEAN CELL VOLUME 89.8 fL (80-100); MEAN CORPUSCULAR HEMOGLOBIN 30.9 pg (25-34); MEAN CORPUSCULAR HGB CONC 34.5 g/dl (32-36); MEAN PLATELET VOLUME 8.6 fL (7.4-10.4); PLATELET COUNT 301 K/uL (130-400); RED BLOOD COUNT 3.91 M/uL (4.7-6.1); WHITE BLOOD COUNT 12.34 K/uL (4.8-10.8)
[2016-05-13] MEDS: VANCOMYCIN INJ 1,500 MG in SODIUM CHLORIDE 0.9% 500ML 500 ML IV SCH ×3 (07:46→23:34)
[2016-05-13 07:58] LABS: PARTIAL THROMBOPLASTIN RATIO 1.1
[2016-05-13 08:13] LABS: BUN/CREATININE RATIO 13.5 (10-20); CALCIUM 8.2 mg/dl (8.5-10.1); CREATININE 0.81 mg/dl (0.60-1.40); POTASSIUM 3.4 mmol/L (3.5-5.1)
[2016-05-13] MEDS: ALBUT/IPRATROP 3MG/0.5MG NEB 3 ML VIAL INH SCH ×4 (08:16→19:15)
[2016-05-13] MEDS: DOXYCYCLINE IV 100 MG in DEXTROSE 5% 100ML 100 ML IV SCH ×2 (10:07→20:33)
[2016-05-13] MEDS ORDERED: FENTANYL CITRATE INJ 50 MCG/1 ML 2 ML VIAL ONE (10:15)
[2016-05-13] MEDS ORDERED: BENZOCAIN/TETRACA/BUTAM SPRAY 200 APPLN/20 GM SPRY ONE (10:15)
[2016-05-13] MEDS ORDERED: MIDAZOLAM HCL 1 MG/ML 2ML VIAL ONE (10:16)
[2016-05-13] MEDS ORDERED: CANNULA ONE ×2 (10:16)
[2016-05-13 11:06] LABS: LEGIONELLA ANTIGEN NOT DETECTED
--- NOTE | 2016-05-13 11:36 | Procedure Note ---
Pre-Mod Sedation Assessment General Date of Moderate Sedation: May 13, 2016. Vital Signs: Vital Signs Past 12 Hours Date Time Temp Pulse Resp B/P Pulse Ox O2 Delivery O2 Flow Rate FiO2 05/13/16 09:56 37.7 86 18 111/68 99 Nasal Cannula 2.0 05/13/16 08:19 37.7 86 18 111/68 99 05/13/16 08:00 Nasal Cannula 2.0 05/13/16 07:25 88 18 97 Nasal Cannula 2.0 05/13/16 04:00 Nasal Cannula 2.0 05/13/16 03:55 37.7 89 20 116/68 98 Nasal Cannula 2.0 05/12/16 23:59 98 Nasal Cannula 2.0 Review Cardiovascular: regular rate, rhythm, no murmur Abdomen: non tender, soft Lungs: lungs clear Pre-Sedation Airway Assessment Oral Cavity: WNL Short Thick Neck: No Hx of Sleep Apnea: No Smoking Status: Never Smoker Procedure Planning Contraindications-for Mod Sed: None Yes Notes The planned sedation has been discussed with the patient and consent obtained. I have identified the patient, determined the appropriateness of sedation and have assessed the patient immediately prior to the procedure. All medicine(s) and interventions are by my order.
[2016-05-13] MEDS ORDERED: PERFLUTREN LIPID MICROSPHERE (DEFINITY) IV ONE (12:18)
--- NOTE | 2016-05-13 12:24 | Procedure Note ---
Post-Mod Sedation Assessment General Date of Moderate Sedation May 13, 2016. Vital Signs: Vital Signs Past 12 Hours Date Time Temp Pulse Resp B/P Pulse Ox O2 Delivery O2 Flow Rate FiO2 05/13/16 12:18 88 10 104/58 95 Nasal Cannula 2.0 05/13/16 12:08 86 22 130/64 94 Nasal Cannula 2.0 05/13/16 12:00 Nasal Cannula 2.0 05/13/16 09:56 37.7 86 18 111/68 99 Nasal Cannula 2.0 05/13/16 08:19 37.7 86 18 111/68 99 05/13/16 08:00 Nasal Cannula 2.0 05/13/16 07:25 88 18 97 Nasal Cannula 2.0 05/13/16 04:00 Nasal Cannula 2.0 05/13/16 03:55 37.7 89 20 116/68 98 Nasal Cannula 2.0 Review - Discharge Criteria Vital Signs Stable: Yes Alert/Oriented/Conversant: Yes Returned to Baseline Mental St: Yes Nausea Absent/Minimal: Yes Pain/Discomfort/Absent/Minimal: Yes Normal/Baseline Respirations: Yes Active Bleeding?: No
--- NOTE | 2016-05-13 12:25 | Cardiology Procedure Brief Nt ---
Preliminary Cardiology Note Procedure Date May 13, 2016. Pre-Procedure Diagnosis Fever. mitral regurgitation Post-Procedure Diagnosis Fever Procedure(s) Performed ADRIAN [employer]urer(s) Sarah Estimated Blood Loss none Preliminary Findings Normal LV systolic function and wall motion. No visualized vegetation. Trace mitral regurgitation. Full report to follow. Recommendations evaluation and treatment as per ID. Specimens none Complication(s) None Disposition echo lab
--- NOTE | 2016-05-13 12:57 | CARDIOLOGY PROGRESS NOTE ---
DATE: 05/13/2016 TIME: 12:26 p.m. SUBJECTIVE: Continues to feel better on a daily basis. Exertional fatigue continues to improve. Cooling blanket was removed this morning. He has not had any significantly elevated temperatures thus far this morning. Denies chest pain, shortness of breath, syncope, near syncope, or palpitations. OBJECTIVE: VITAL SIGNS: Temperature is 37.7 degrees, which is also the T-max. Heart rate 88 beats per minute, respiratory rate 22, blood pressure 130/64 mmHg, and oxygen saturation 94% on 2 liters per nasal cannula. I's and O's relatively even fluid balance yesterday. Weight is 89.8 kg. GENERAL: No acute distress. He is alert. NECK: No appreciable JVD. CARDIAC EXAM: No ventricular heave, regular, normal S1 and S2. No murmurs, rubs, or gallops were auscultated. LUNGS: Clear to auscultation bilaterally without wheezes, rales or rhonchi. ABDOMEN: Soft, nontender, and nondistended. Normoactive bowel sounds. EXTREMITIES: No cyanosis or edema. PSYCHIATRIC: Affect appears appropriate. MEDICATIONS: Include doxycycline 100 mg IV b.i.d., losartan 25 mg daily, metoprolol succinate 25 mg daily, and vancomycin IV. LABORATORY DATA: White blood cell count is 12.34 down from 15.98, hemoglobin 12.1, and platelets 301. Sodium 140, potassium 3.4, BUN 11, and creatinine 0.81. C-reactive protein 20.2. ESR 79. Blood cultures are negative to date x2. Repeat blood cultures drawn yesterday are still pending. Sputum culture, moderate normal chula from 05/10/2016. Transesophageal echo was performed earlier today. His LV systolic function has normalized. There are no wall motion abnormalities. Trace mitral regurgitation. No valvular vegetations visualized. Blood culture report from [facility] drawn on 05/08/2016, negative x2. ASSESSMENT AND PLAN: 1. Elevated troponins: Could have been secondary to demand ischemia with fevers and rigors versus myocarditis. LV systolic function has normalized. He did not present with any angina. An outpatient stress test can be done once he has recovered from his acute illness to evaluate for ischemic heart disease. 2. Cardiomyopathy: His LV systolic function appeared mildly reduced upon presentation. On transesophageal echo images, his LV systolic function appeared normal. Additional transthoracic images were taken with IV echo contrast and LV systolic function and wall motion appeared normal. Continue metoprolol succinate and losartan. Losartan can be increased if needed for hypertension as he was on 100 mg as an outpatient. 3. Hypertension: Blood pressure adequately controlled. Can increase losartan up to his home dose if necessary. 4. Fevers and chills: This does not appear to be due to endocarditis as no vegetation was demonstrated on transesophageal echocardiogram. Symptomatically, he is improving on a daily basis on broad spectrum antibiotics. Further evaluation and treatment as per infectious disease. 5. Disposition: Recommend outpatient stress test in the form of a stress echo once he is recovered from his acute illness as he did not present with acute coronary syndrome. This would be to evaluate for any significant ischemic changes; however, myocarditis could have explained his elevated troponins. Please call for any further questions or concerns.
--- NOTE | 2016-05-13 14:37 | Pharmacy Progress Note ---
Pharmacy Antibiotic Consult Date of Service: May 13, 2016. Pharmacy Dosing Scope Pharmacy is consulted to initiate vancomycin IV dosing therapy, order appropriate labs and adjust drug dose/frequency. Subjective The patient is a 55 year old male admitted on May 09, 2016 at 21:11 with fevers and leukocytosis secondary to questionable pneumonia vs endocarditis Objective Height (Feet): 5 Height (Inches): 7.00 Weight (Kilograms): 89.800 Lab Results (24hrs): Laboratory Tests Test 05/13/16 07:35 BUN/Creatinine Ratio 13.5 Blood Urea Nitrogen 11 mg/dl Creatinine 0.81 mg/dl White Blood Count 12.34 K/uL Micro Results: Item Value Date Time C.difficile Toxin B Gene (PCR) Received 05/13/16 1315 Stool Pending Blood Culture Received 05/12/16 1532 Blood Pending Blood Culture Received 05/12/16 1520 Blood Pending MRSA DNA Surveillance Screen - Final Complete 05/10/16 0900 Nasal Specimen Negative for MRSA by DNA Probe Gram Stain - Final Complete 05/10/16 0830 Sputum Expectorated Sputum Blood Culture - Preliminary Resulted 05/09/16 1833 Blood NO GROWTH TO DATE. Blood Culture - Preliminary Resulted 05/09/16 1829 Blood NO GROWTH TO DATE. Item Value Date Time Rapid Plasma Reagin NONREACTIVE 05/12/16 1520 Urine Legionella Antigen NOT DETECTED 05/10/16 1905 Influenza Type B Antigen Neg for Influ B 05/10/16 1805 Influenza Type A Antigen Neg for Influ A 05/10/16 1805 Influenza Type B (RT-PCR) Neg for Influ B 05/09/16 1855 Influenza Type A (RT-PCR) Neg for Influ A 05/09/16 1855 Monoscreen NEG 05/09/16 1829 Recent Pertinent Medications Item Value Date Time Ceftriaxone 50 ml @ 100 mls/hr 05/10/16 0000 Sodium 1 gm/ Q24H/IV 05/11/16 2352 Dextrose ONE TIME DOSE Doxycycline 110 ml @ 50 mls/hr 05/10/16 0900 Hyclate 100 mg/ BID/IV 05/13/16 1007 Dextrose CONTINUES Vancomycin HCl 1 gm 05/09/162009 (Vancomycin 1gm/ NOW STAT/IV 05/09/16 2039 270ml Nss) Vancomycin HCl 527 ml @ 200 mls/hr 05/10/16 0000 1350 mg/Sodium TODAY@0000/IV 05/10/16 0041 Chloride Vancomycin HCl 276 ml @ 125 mls/hr 05/10/16 1200 1300 mg/Sodium Q10H/IV 05/11/16 0943 Chloride Vancomycin HCl 530 ml @ 125 mls/hr 05/11/16 1600 1500 mg/Sodium Q10H/IV 05/13/16 0746 Chloride Assessment & Plan Assessment: * 55 y/o with questionable source of infection/fevers * Currently on day #5 of vancomycin, day #4 of doxycycline IV * ADRIAN today did not show any vegetation * blood, sputum, serologies negative to date * ID following Plan: * Continue vancomycin and doxycycline IV Vancomycin: * Trough today = 10.6mcg/mL - subtherapeutic * Goal trough ~15-20mcg/mL * Increase dose to 1500mg IV every 8 hours * Repeat trough 05/14 prior to the 08:00 dose Doxycycline: * Continue 100mg IV every 12 hours Pharmacy will continue to follow and will adjust dose/frequency as necessary. Thank you
--- NOTE | 2016-05-13 14:58 | Progress Note ---
Subjective Date of Service: May 13, 2016. Subjective S/p ADRIAN today, no veg noted. blood cultures remain negative, remains on abx. viral studies done yesterday, pending, rpr negative, esr elevated at 79, crp 20. repeat blood cultures pending as well. continues with fever but improving, tmax 39 but fevers less frequent. wbc improving as well, 12 today. no overnight events. Problem List Medical Problems: (1) Fever Status: Acute (2) Hypertension Status: Chronic Objective Vital Signs Date Time Temp Pulse Resp B/P Pulse Ox O2 Delivery O2 Flow Rate FiO2 05/13/16 14:30 95 124/84 92 05/13/16 14:05 90 20 123/68 96 Nasal Cannula 2.0 05/13/16 13:50 91 20 117/72 96 Nasal Cannula 2.0 05/13/16 13:35 89 20 133/69 98 Nasal Cannula 2.0 05/13/16 13:21 36.8 89 20 125/70 96 Nasal Cannula 2.0 05/13/16 12:38 86 18 122/56 95 Nasal Cannula 2.0 05/13/16 12:28 86 18 119/59 94 Nasal Cannula 2.0 05/13/16 12:18 88 10 104/58 95 Nasal Cannula 2.0 05/13/16 12:08 86 22 130/64 94 Nasal Cannula 2.0 05/13/16 12:07 Nasal Cannula 2.0 05/13/16 12:05 84 26 121/65 93 Nasal Cannula 2.0 05/13/16 12:00 Nasal Cannula 2.0 05/13/16 12:00 85 30 123/66 92 Nasal Cannula 2.0 05/13/16 11:55 88 17 128/63 93 Nasal Cannula 2.0 05/13/16 11:52 88 29 123/63 94 Nasal Cannula 2.0 05/13/16 11:51 Nasal Cannula 2.0 05/13/16 11:47 87 25 123/69 92 Nasal Cannula 2.0 05/13/16 11:43 88 17 141/69 96 Nasal Cannula 2.0 05/13/16 09:56 37.7 86 18 111/68 99 Nasal Cannula 2.0 05/13/16 08:19 37.7 86 18 111/68 99 05/13/16 08:00 Nasal Cannula 2.0 05/13/16 07:25 88 18 97 Nasal Cannula 2.0 05/13/16 04:00 Nasal Cannula 2.0 05/13/16 03:55 37.7 89 20 116/68 98 Nasal Cannula 2.0 05/12/16 23:59 98 Nasal Cannula 2.0 05/12/16 23:22 37.3 94 18 133/75 98 Nasal Cannula 2.0 05/12/16 20:59 89 18 90 Nasal Cannula 2.0 05/12/16 20:00 98 Nasal Cannula 2.0 05/12/16 19:51 37.4 89 18 116/72 98 Nasal Cannula 2.0 05/12/16 16:08 92 18 88 Room Air 05/12/16 16:00 Room Air 05/12/16 15:16 37.1 111 18 141/82 92 Room Air 05/12/16 15:06 37.4 Laboratory Results Item Value Date Time Blood Culture - Preliminary Resulted 05/09/16 1829 Blood NO GROWTH TO DATE. Blood Culture - Preliminary Resulted 05/09/16 1833 Blood NO GROWTH TO DATE. Last 24 Hours Test 05/12/16 15:20 05/13/16 07:35 Erythrocyte Sedimentation Rate 79 mm/hr C-Reactive Protein 20.20 mg/dl Rapid Plasma Reagin NONREACTIVE White Blood Count 12.34 K/uL Red Blood Count 3.91 M/uL Hemoglobin 12.1 g/dL Hematocrit 35.1 % Mean Corpuscular Volume 89.8 fL Mean Corpuscular Hemoglobin 30.9 pg Mean Corpuscular Hemoglobin Concent 34.5 g/dl RDW Standard Deviation 45.6 fL RDW Coefficient of Variation 13.8 % Platelet Count 301 K/uL Mean Platelet Volume 8.6 fL Activated Partial Thromboplast Time 29.6 SECONDS Partial Thromboplastin Ratio 1.1 Sodium Level 140 mmol/L Potassium Level 3.4 mmol/L Chloride Level 101 mmol/L Carbon Dioxide Level 27 mmol/L Anion Gap 12.0 mmol/L Blood Urea Nitrogen 11 mg/dl Creatinine 0.81 mg/dl Est Creatinine Clear Calc Drug Dose 108.9 ml/min Estimated GFR () 115.1 Estimated GFR (Non- 99.4 BUN/Creatinine Ratio 13.5 Random Glucose 98 mg/dl Calcium Level 8.2 mg/dl Vancomycin Level Trough 10.6 mcg/ml Assessment and Plan (1) Fever Status: Acute Assessment & Plan: follow viral studies, cultures. all negative to date. fever curve improving, would continue abx for now but unlikely bacterial. follow cultures add lyme titer but no risk factor identified.
[2016-05-13 15:25] LABS: EBV EARLY ANTIGEN AB <0.91 INDEX
--- NOTE | 2016-05-13 15:52 | TEE ---
*NOTICE TO RECEIVING [facility] This information is strictly Confidential and protected under [place] law. [place] law prohibits you from making any further disclosure of this information unless further disclosure is expressly permitted by the written consent of the person to whom it pertains or is authorized by law. A general authorization for the release of medical or other information is not sufficient for this purpose. Hospital accepts no responsibility if the information is made available to any other person, INCLUDING THE PATIENT. Interpretation Summary * Name: LUPE BRANDON Study Date: 05/13/2016 11:13 AM BP: 141/69 mmHg * Patient Location: C.2T\S\S241\S\2 HR: 86 * : 1960 (M/d/yyyy) Gender: Male Height: 67 in * Age: 55 yrs Ethnicity: CA Weight: 191 lb * Ordering Physician: Anastacio Lane * Referring Physician: Jose Lawler * Performed By: Fide Smith RCS * * Reason For Study: Fever, Abnormal ECHO, Mitral Regurge * BSA: 2.0 m2 * -- Conclusions -- * ADRIAN: * 1. Normal left ventricular size and systolic function. EF 60-65%. No regional wall motion abnormalities. No left ventricular hypertrophy. Type 1 diastolic dysfunction. * 2. No significant valvular abnormalities. * 3. No valvular vegetations visualized. * 4. Following ADRIAN images, IV Definity 2-D TTE images were obtained to better evaluate wall motion and systolic function. * 5. Patient tolerated procedure well, without known complication. * 6. Compared to prior study on 05/10/2016, LV systolic function and wall motion have normalized. Procedure Details * ADRIAN Probe #1 utilized for procedure. * The study was performed in Cardiopulmonary Department. * Time out was conducted by the physician, nurse, and histologic technician with positive identification of patient and procedure. * Informed consent for Transesophageal Echocardiogram was obtained prior to the procedure. * An intravenous line was placed. A topical anesthetic agent was used for oropharangeal anesthesia. A bite block was inserted. * The patient's vital signs, including blood pressure, heart rate, pulse oximetry and cardiac rhythm were monitored throughout the procedure . * Fentanyl 3 mcg was administered for procedural sedation. * Midazolam 75 mg administered for sedation. * One vial of Definity ultrasound contrast was diluted in normal saline to a total volume of 10 ml. A total of '2' ml of solution was administered during imaging. * Lot # [id number] of Definity utilized for procedure. * Expiration date . * Contrast injection with Definity was performed. * A multifrequency, multiplane transesopheageal echocardiographic endoscope was inserted and manipulated in the standard fashion to achieve multiplane views. * The transesophageal probe was passed without difficulty. * A 2D transesophageal echocardiogram with spectral and color flow Doppler was performed. * The usual views were obtained; basal, mid-esophageal, transgastric and aortic views. * The patient tolerated the procedure well without evidence of orophangeal or esophageal trauma. * A 2D transesophageal echocardiogram was performed. * A 2D transesophageal echocardiogram with color flow Doppler was performed. * A 2D transesophageal echocardiogram with Doppler and color flow Doppler was performed. Left Ventricle * Normal left ventricular size and systolic function. EF 60-65%. No regional wall motion abnormalities. No left ventricular hypertrophy. Type 1 diastolic dysfunction. Right Ventricle * The right ventricle is normal in size and function. Atria * The left atrial size is normal. * No thrombus is detected in the left atrial appendage. * Right atrial size is normal. * No ASD. No visualized PFO via color Doppler or 2D imaging. Mitral Valve * The mitral valve is normal in structure and function. * There is no mitral valve stenosis. * There is trace mitral regurgitation. Tricuspid Valve * The tricuspid valve is normal in structure and function. * There is no tricuspid stenosis. * Significant tricuspid regurgitation is absent. Aortic Valve * The aortic valve is normal in structure and function. * The aortic valve is trileaflet. * The aortic valve opens well. * No aortic regurgitation is present. Pulmonic Valve * The pulmonic valve is not well seen, but is grossly normal. * Trace pulmonic valvular regurgitation. Great Vessels * The aortic root is normal size. * Mild atherosclerosis in descending thoracic aorta. * Normal pulmonary venous flow pattern. Normal IVC size and inspiratory collapse. Pericardium * There is no pericardial effusion. MMode 2D Measurements and Calculations IVSd 1.0 cm LVIDd 4.1 cm LVIDs 2.6 cm LVPWd 1.1 cm IVS/LVPW 0.94 FS 35.2 % EDV(Teich) 73.7 ml ESV(Teich) 25.8 ml EF(Teich) 65.0 % EDV(cubed) 68.4 ml ESV(cubed) 18.6 ml EF(cubed) 72.8 % LV mass(C)d 147.3 grams LV mass(C)dI 74.3 grams/m\S\2 SV(Teich) 48.0 ml SI(Teich) 24.2 ml/m\S\2 SV(cubed) 49.8 ml SI(cubed) 25.1 ml/m\S\2 Ao root diam 3.2 cm Ao root area 7.9 cm\S\2 asc Aorta Diam 2.8 cm LVAd ap4 33.8 cm\S\2 LVLd ap4 8.5 cm EDV(MOD-sp4) 108.3 ml EDV(sp4-el) 114.0 ml LVAs ap4 19.0 cm\S\2 LVLs ap4 7.3 cm ESV(MOD-sp4) 42.2 ml ESV(sp4-el) 42.0 ml EF(MOD-sp4) 61.0 % EF(sp4-el) 63.2 % SV(MOD-sp4) 66.1 ml SI(MOD-sp4) 33.3 ml/m\S\2 SV(sp4-el) 72.0 ml SI(sp4-el) 36.3 ml/m\S\2 Doppler Measurements and Calculations MV E max elsa 68.6 cm/sec MV A max elsa 84.4 cm/sec MV E/A 0.81 MV dec time 0.15 sec MR max elsa 431.1 cm/sec MR max PG 74.3 mmHg PA V2 max 104.0 cm/sec PA max PG 4.3 mmHg RAP systole 3.0 mmHg
[2016-05-13] MEDS: CALCIUM CARBONATE 1250MG TAB PO SCH ×2 (15:58→20:34)
[2016-05-13] MEDS: LOSARTAN POTASSIUM 25 MG TAB PO SCH (15:59)
[2016-05-13] MEDS: METOPROLOL SUCC 25MG EXT REL TAB PO SCH (16:00)
[2016-05-13 18:04] LABS: LYME DISEASE AB IGG NEG (NEG); LYME DISEASE AB IGM NEG (NEG)
[2016-05-13] MEDS: ACETAMINOPHEN 325 MG TAB PO PRN (19:06)
--- NOTE | 2016-05-13 20:40 | Progress Note ---
Subjective Subjective Date of Service: May 13, 2016. Pt evaluation today including: conversation w/ patient, conversation w/ family (), physical exam, chart review, lab review, review of studies, conversation w/ sales consultant insurance (tam), review of inpatient medication list Problem List Medical Problems: (1) Fever Status: Acute (2) Hypertension Status: Chronic Review of Systems Constitutional: + chills, + fever ENT: No hearing loss Respiratory: No cough Cardiac: No chest pain Abdomen: No pain Musculoskeletal: No joint pain Male : No dysuria Neurologic: No memory loss Psychiatric: No depression symptoms Heme: No abnormal bleeding/bruising Endo: No fatigue Physical Exam Vital Signs Vital Signs Past 24 Hours: Date Time Temp Pulse Resp B/P Pulse Ox O2 Delivery O2 Flow Rate FiO2 05/13/16 20:00 98 Nasal Cannula 2.0 05/13/16 19:07 37.9 05/13/16 16:00 98 Nasal Cannula 2.0 05/13/16 15:45 37.7 89 18 120/67 95 Nasal Cannula 2.0 05/13/16 15:41 89 18 95 Nasal Cannula 2.0 05/13/16 14:30 95 124/84 92 05/13/16 14:05 90 20 123/68 96 Nasal Cannula 2.0 05/13/16 13:50 91 20 117/72 96 Nasal Cannula 2.0 05/13/16 13:35 89 20 133/69 98 Nasal Cannula 2.0 05/13/16 13:21 36.8 89 20 125/70 96 Nasal Cannula 2.0 05/13/16 12:38 86 18 122/56 95 Nasal Cannula 2.0 05/13/16 12:28 86 18 119/59 94 Nasal Cannula 2.0 05/13/16 12:18 88 10 104/58 95 Nasal Cannula 2.0 05/13/16 12:08 86 22 130/64 94 Nasal Cannula 2.0 05/13/16 12:07 Nasal Cannula 2.0 05/13/16 12:05 84 26 121/65 93 Nasal Cannula 2.0 05/13/16 12:00 Nasal Cannula 2.0 05/13/16 12:00 85 30 123/66 92 Nasal Cannula 2.0 05/13/16 11:55 88 17 128/63 93 Nasal Cannula 2.0 05/13/16 11:52 88 29 123/63 94 Nasal Cannula 2.0 05/13/16 11:51 Nasal Cannula 2.0 05/13/16 11:47 87 25 123/69 92 Nasal Cannula 2.0 05/13/16 11:43 88 17 141/69 96 Nasal Cannula 2.0 05/13/16 09:56 37.7 86 18 111/68 99 Nasal Cannula 2.0 05/13/16 08:19 37.7 86 18 111/68 99 05/13/16 08:00 Nasal Cannula 2.0 05/13/16 07:25 88 18 97 Nasal Cannula 2.0 05/13/16 04:00 Nasal Cannula 2.0 05/13/16 03:55 37.7 89 20 116/68 98 Nasal Cannula 2.0 05/12/16 23:59 98 Nasal Cannula 2.0 05/12/16 23:22 37.3 94 18 133/75 98 Nasal Cannula 2.0 05/12/16 20:59 89 18 90 Nasal Cannula 2.0 Physical Exam: General Appearance: WD/WN, no apparent distress Eyes: bilateral eyes normal inspection ENT: hearing grossly normal, pharynx normal Neck: supple, no JVD Respiratory/Chest: chest non-tender, no accessory muscle use Cardiovascular: regular rate, rhythm, no gallop Abdomen: non tender, soft Extremities: normal range of motion, normal inspection 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 as tested, no motor/sensory deficits Medications Medications: Current Inpatient Medications Medications (Trade) Dose Ordered Sig/Ifrah Route Start Time Stop Time Status Last Admin Dose Admin Calcium Carbonate (oS-Enrique 500 TAB) 1,250 mg BID PO 05/10/16 09:00 06/09/16 08:59 05/13/16 20:34 1,250 MG Acetaminophen (Tylenol Tab) 650 mg Q4H PRN PO 05/09/16 21:15 06/08/16 21:14 05/13/16 19:06 650 MG Al Hydrox/Mg Hydrox/Simethicone (Maalox Max Susp) 15 ml Q4H PRN PO 05/09/16 21:15 06/08/16 21:14 Magnesium Hydroxide (Milk Of Magnesia Susp) 30 ml Q12H PRN PO 05/09/16 21:15 06/08/16 21:14 Zolpidem Tartrate (Ambien Tab) 5 mg HSZ PRN PO 05/09/16 21:15 06/08/16 21:14 Ondansetron HCl (Zofran Inj) 4 mg Q6H PRN IV 05/09/16 21:15 06/08/16 21:14 Nitroglycerin (Nitrostat Tab) 0.4 mg UD PRN SL 05/09/16 21:15 06/08/16 21:14 Morphine Sulfate (MoRPHine SULFATE INJ) 2 mg Q30M PRN IV 05/09/16 21:15 05/23/16 21:14 Polyethylene (Miralax Powder Packet) 17 gm DAILY PRN PO 05/09/16 21:15 06/08/16 21:14 Albuterol/ Ipratropium (Duoneb) 3 ml QIDR INH 05/10/16 08:00 06/09/16 07:59 05/13/16 15:41 3 ML Albuterol Sulfate (Ventolin 0.083% 2.5MG/3ML Neb) 2.5 mg Q4H PRN INH 05/09/16 21:45 06/08/16 21:44 05/10/16 01:33 2.5 MG Vancomycin HCl 1 ea 1 ea UD PRN N/A 05/09/16 23:45 06/08/16 23:44 Doxycycline Hyclate/Dextrose (Vibramycin IV/ D5 100ml) 110 ml @ 50 mls/hr BID IV 05/10/16 09:00 05/17/16 08:59 05/13/16 20:33 50 MLS/HR Metoprolol Succinate (Toprol Xl Tab) 25 mg QAM PO 05/11/16 09:00 06/10/16 08:59 05/13/16 16:00 25 MG Losartan Potassium 25 mg 25 mg QAM PO 05/12/16 09:00 06/11/16 08:59 05/13/16 15:59 25 MG Vancomycin HCl/ Sodium Chloride (Vancomycin Inj/ Nss 500ml) 530 ml @ 200 mls/hr Q8H IV 05/13/16 16:00 05/16/16 15:59 05/13/16 15:54 200 MLS/HR Laboratory Data Labs: Last 24 Hours Test 05/13/16 07:35 05/13/16 15:50 White Blood Count 12.34 K/uL Red Blood Count 3.91 M/uL Hemoglobin 12.1 g/dL Hematocrit 35.1 % Mean Corpuscular Volume 89.8 fL Mean Corpuscular Hemoglobin 30.9 pg Mean Corpuscular Hemoglobin Concent 34.5 g/dl RDW Standard Deviation 45.6 fL RDW Coefficient of Variation 13.8 % Platelet Count 301 K/uL Mean Platelet Volume 8.6 fL Activated Partial Thromboplast Time 29.6 SECONDS Partial Thromboplastin Ratio 1.1 Sodium Level 140 mmol/L Potassium Level 3.4 mmol/L Chloride Level 101 mmol/L Carbon Dioxide Level 27 mmol/L Anion Gap 12.0 mmol/L Blood Urea Nitrogen 11 mg/dl Creatinine 0.81 mg/dl Est Creatinine Clear Calc Drug Dose 108.9 ml/min Estimated GFR () 115.1 Estimated GFR (Non- 99.4 BUN/Creatinine Ratio 13.5 Random Glucose 98 mg/dl Calcium Level 8.2 mg/dl Vancomycin Level Trough 10.6 mcg/ml Lyme Disease IgG Antibody NEG Lyme Disease IgM Antibody NEG Assessment and Plan A 55-year-old gentleman P/W progressive fevers/chills. previous work up in [place] was negative. No hunting / camping / unusual exposures His initial work up showed positive troponin/myocardial hypokinesia/leukocytosis SIRS infectious (bacterial, fungal, viral) versus non infectious ([place] can cause fever and leukocytosis) Infectious disease consult is appreciated, awaitng repeat blood cx, checking viral cultures Continue Vanco/Doxycyclin as per Dr. Lucero awaiting Blood Cx, sputum Cx, urine legionella, RVP, lyme etc Positive troponin suspect acute viral myocarditis will need ischemic work up but when rule out infection first in case he needs a stent Carpenter Rough consult appreciated, ADRIAN improved EF, no vegetations, valves are normal Acute systolic/diastolic CHF / Ventricular hypokinesia Echo noted on admission (EF 45%. Severe hypokinesis to akinesis of the inferior wall, otherwise, mild global hypokinesis. Type 2 diastolic dysfunction. Mild MR 05/13/16: ADRIAN: improved EF, no vegetations, valves are normal. LV normal continue low dose lasix continue losartan 25 mg daily HTN currently on metoprolol losartan Dyslipidemia, noted DVT prophylaxis full code
[2016-05-14] VITALS (10 sets, daily range): BP systolic 141–154; BP diastolic 63–79; PULSE 85–97; TEMP 36.8–38.4; O2SAT 91–98
[2016-05-14] MEDS: ACETAMINOPHEN 325 MG TAB PO PRN (02:48)
[2016-05-14] MEDS: ALBUT/IPRATROP 3MG/0.5MG NEB 3 ML VIAL INH SCH ×2 (07:06→11:45)
[2016-05-14] MEDS ORDERED: VANCOMYCIN TROUGH SCH (07:30)
[2016-05-14 08:16] LABS: PARTIAL THROMBOPLASTIN RATIO 1.1
[2016-05-14] MEDS: VANCOMYCIN INJ 1,500 MG in SODIUM CHLORIDE 0.9% 500ML 500 ML IV SCH (08:34)
[2016-05-14] MEDS: DOXYCYCLINE IV 100 MG in DEXTROSE 5% 100ML 100 ML IV SCH (08:35)
[2016-05-14] MEDS: CALCIUM CARBONATE 1250MG TAB PO SCH ×2 (09:06→21:01)
[2016-05-14] MEDS: LOSARTAN POTASSIUM 25 MG TAB PO SCH (09:07)
[2016-05-14] MEDS: METOPROLOL SUCC 25MG EXT REL TAB PO SCH (09:08)
--- NOTE | 2016-05-14 11:51 | Progress Note ---
Subjective Date of Service: May 14, 2016. Subjective Pt evaluation today including: conversation w/ patient, physical exam, chart review, lab review pt seen in follow up, feeling better today. had isolated fever last night, 38.4. States he was sleeping comfortably and awoken for vs and was found to have a fever, he denies any sweats/rigors or any other symptoms. otherwise afebrile. Afebrile this am. no cp, no sob. Alejandro done, no veg found. wbc improving , no am labs. multiple labs done r/o viral myocarditis, pending, explained to pt. rpr negative, lyme screen negative, blood cultures 05/09, 05/04 all negative. remains on abx. esr elevated. ferdinand pending. flu negative. parvo, coxsackie, ebv, cmv all pending. Feeling much better, no complaints. 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 all remaining ros reviewed and are negative. Problem List Medical Problems: (1) Fever Status: Acute (2) Hypertension Status: Chronic Objective Vital Signs Date Time Temp Pulse Resp B/P Pulse Ox O2 Delivery O2 Flow Rate FiO2 05/14/16 11:46 87 18 91 Room Air 05/14/16 11:28 37.4 90 18 154/79 93 Room Air 05/14/16 08:00 Room Air 05/14/16 07:42 36.8 86 20 144/75 96 Room Air 05/14/16 07:06 85 18 91 Room Air 05/14/16 04:39 37.3 05/14/16 04:00 98 Nasal Cannula 2.0 05/14/16 03:33 38.4 97 20 146/71 91 Nasal Cannula 2.0 05/13/16 23:59 98 Nasal Cannula 2.0 05/13/16 23:13 37.1 81 18 143/75 93 Room Air 05/13/16 20:16 36.8 91 18 120/70 93 Nasal Cannula 2.0 05/13/16 20:00 98 Nasal Cannula 2.0 05/13/16 19:15 87 18 96 Nasal Cannula 2.0 05/13/16 19:07 37.9 05/13/16 16:00 98 Nasal Cannula 2.0 05/13/16 15:45 37.7 89 18 120/67 95 Nasal Cannula 2.0 05/13/16 15:41 89 18 95 Nasal Cannula 2.0 05/13/16 14:30 95 124/84 92 05/13/16 14:05 90 20 123/68 96 Nasal Cannula 2.0 05/13/16 13:50 91 20 117/72 96 Nasal Cannula 2.0 05/13/16 13:35 89 20 133/69 98 Nasal Cannula 2.0 05/13/16 13:21 36.8 89 20 125/70 96 Nasal Cannula 2.0 05/13/16 12:38 86 18 122/56 95 Nasal Cannula 2.0 05/13/16 12:28 86 18 119/59 94 Nasal Cannula 2.0 05/13/16 12:18 88 10 104/58 95 Nasal Cannula 2.0 05/13/16 12:08 86 22 130/64 94 Nasal Cannula 2.0 05/13/16 12:07 Nasal Cannula 2.0 05/13/16 12:05 84 26 121/65 93 Nasal Cannula 2.0 05/13/16 12:00 Nasal Cannula 2.0 05/13/16 12:00 85 30 123/66 92 Nasal Cannula 2.0 05/13/16 11:55 88 17 128/63 93 Nasal Cannula 2.0 05/13/16 11:52 88 29 123/63 94 Nasal Cannula 2.0 05/13/16 11:51 Nasal Cannula 2.0 Physical Exam General Appearance: WD/WN, no apparent distress Eyes: EOMI Neck: supple Respiratory/Chest: lungs clear, normal breath sounds, no respiratory distress Cardiovascular: regular rate, rhythm, no edema Abdomen: non tender, soft Extremities: non-tender, normal inspection, no pedal edema Neurologic/Psychiatric: alert, oriented x 3 Skin: normal color Laboratory Results Item Value Date Time Blood Culture - Preliminary Resulted 05/09/16 1829 Blood NO GROWTH TO DATE. Blood Culture - Preliminary Resulted 05/09/16 1833 Blood NO GROWTH TO DATE. Blood Culture - Preliminary Resulted 05/12/16 1520 Blood NO GROWTH TO DATE. Blood Culture - Preliminary Resulted 05/12/16 1532 Blood NO GROWTH TO DATE. C.difficile Toxin B Gene (PCR) - Final Complete 05/13/16 1315 Stool No C. difficile toxin B gene detected Last 24 Hours Test 05/13/16 15:50 05/14/16 07:26 Lyme Disease IgG Antibody NEG Lyme Disease IgM Antibody NEG Activated Partial Thromboplast Time 28.2 SECONDS Partial Thromboplastin Ratio 1.1 Vancomycin Level Trough 14.5 mcg/ml Assessment and Plan (1) Fever Status: Acute Assessment & Plan: suspect myocarditis, viral studies pending. blood cultures negative x 4, tte and alejandro negative veg. will stop abx. 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 pt asking to go home, will stop abx today. no contraindication to d/c from ID standpoint when medically stable.
--- NOTE | 2016-05-14 18:36 | Progress Note ---
Subjective Subjective Date of Service: May 14, 2016. Pt evaluation today including: conversation w/ patient, physical exam, chart review, review of studies, review of inpatient medication list Problem List Medical Problems: (1) Fever Status: Acute (2) Hypertension Status: Chronic Review of Systems Constitutional: + fever (last night) ENT: No hearing loss Respiratory: No cough Abdomen: No pain Male : No dysuria Psychiatric: No depression symptoms Endo: No fatigue Skin: No rash Physical Exam Vital Signs Vital Signs Past 24 Hours: Date Time Temp Pulse Resp B/P Pulse Ox O2 Delivery O2 Flow Rate FiO2 05/14/16 16:00 Room Air 05/14/16 15:15 37.4 90 18 141/75 95 Room Air 05/14/16 12:00 Room Air 05/14/16 11:46 87 18 91 Room Air 05/14/16 11:28 37.4 90 18 154/79 93 Room Air 05/14/16 08:00 Room Air 05/14/16 07:42 36.8 86 20 144/75 96 Room Air 05/14/16 07:06 85 18 91 Room Air 05/14/16 04:39 37.3 05/14/16 04:00 98 Nasal Cannula 2.0 05/14/16 03:33 38.4 97 20 146/71 91 Nasal Cannula 2.0 05/13/16 23:59 98 Nasal Cannula 2.0 05/13/16 23:13 37.1 81 18 143/75 93 Room Air 05/13/16 20:16 36.8 91 18 120/70 93 Nasal Cannula 2.0 05/13/16 20:00 98 Nasal Cannula 2.0 05/13/16 19:15 87 18 96 Nasal Cannula 2.0 05/13/16 19:07 37.9 Physical Exam: General Appearance: WD/WN, no apparent distress Eyes: bilateral eyes normal inspection ENT: hearing grossly normal, pharynx normal Neck: supple, no JVD Respiratory/Chest: lungs clear, no respiratory distress Cardiovascular: no gallop, no JVD Abdomen: non tender, no organomegaly Extremities: non-tender, no pedal edema Neurologic/Psychiatric: alert, oriented x 3 Skin: normal color, warm/dry Medications Medications: Current Inpatient Medications Medications (Trade) Dose Ordered Sig/Ifrah Route Start Time Stop Time Status Last Admin Dose Admin Calcium Carbonate (oS-Enrique 500 TAB) 1,250 mg BID PO 05/10/16 09:00 06/09/16 08:59 05/14/16 09:06 1,250 MG Acetaminophen (Tylenol Tab) 650 mg Q4H PRN PO 05/09/16 21:15 06/08/16 21:14 05/14/16 02:48 650 MG Al Hydrox/Mg Hydrox/Simethicone (Maalox Max Susp) 15 ml Q4H PRN PO 05/09/16 21:15 06/08/16 21:14 Magnesium Hydroxide (Milk Of Magnesia Susp) 30 ml Q12H PRN PO 05/09/16 21:15 06/08/16 21:14 Zolpidem Tartrate (Ambien Tab) 5 mg HSZ PRN PO 05/09/16 21:15 06/08/16 21:14 Ondansetron HCl (Zofran Inj) 4 mg Q6H PRN IV 05/09/16 21:15 06/08/16 21:14 Nitroglycerin (Nitrostat Tab) 0.4 mg UD PRN SL 05/09/16 21:15 06/08/16 21:14 Morphine Sulfate (MoRPHine SULFATE INJ) 2 mg Q30M PRN IV 05/09/16 21:15 05/23/16 21:14 Polyethylene (Miralax Powder Packet) 17 gm DAILY PRN PO 05/09/16 21:15 06/08/16 21:14 Albuterol Sulfate (Ventolin 0.083% 2.5MG/3ML Neb) 2.5 mg Q4H PRN INH 05/09/16 21:45 06/08/16 21:44 05/10/16 01:33 2.5 MG Metoprolol Succinate (Toprol Xl Tab) 25 mg QAM PO 05/11/16 09:00 06/10/16 08:59 05/14/16 09:08 25 MG Losartan Potassium (coZAAR TAB) 25 mg QAM PO 05/12/16 09:00 06/11/16 08:59 05/14/16 09:07 25 MG Albuterol/ Ipratropium (Combivent Respimat Inh) 1 puffs QIDR INH 05/14/16 20:00 06/13/16 19:59 Laboratory Data Labs: Last 24 Hours Test 05/14/16 07:26 Activated Partial Thromboplast Time 28.2 SECONDS Partial Thromboplastin Ratio 1.1 Vancomycin Level Trough 14.5 mcg/ml Assessment and Plan A 55-year-old gentleman P/W progressive fevers/chills. previous work up in [place] was negative. No hunting / camping / unusual exposures His initial work up showed positive troponin/myocardial hypokinesia/leukocytosis SIRS infectious (bacterial, fungal, viral) versus non infectious ([place] can cause fever and leukocytosis) Infectious disease consult is appreciated, awaitng repeat blood cx, checking viral cultures Continue Vanco/Doxycyclin as per Dr. Lucero awaiting Blood Cx, sputum Cx, urine legionella, RVP, lyme etc Positive troponin suspect acute viral myocarditis will need ischemic work up but when rule out infection first in case he needs a stent Plug Paster consult appreciated, ADRIAN improved EF, no vegetations, valves are normal Acute systolic/diastolic CHF / Ventricular hypokinesia Echo noted on admission (EF 45%. Severe hypokinesis to akinesis of the inferior wall, otherwise, mild global hypokinesis. Type 2 diastolic dysfunction. Mild MR 05/13/16: ADRIAN: improved EF, no vegetations, valves are normal. LV normal, will need stress test outpatient in few weeks continue low dose lasix continue losartan 25 mg daily HTN currently on metoprolol losartan Dyslipidemia, noted DVT prophylaxis full code d/c home tomorrow
[2016-05-14] MEDS: IPRATROPIUM BROMIDE/ALBUTEROL respimat INH INH SCH (21:01)
[2016-05-15 03:22] VITALS: BP 146/74; PULSE 85; TEMP 37.3; O2SAT 91
[2016-05-15 07:40] LABS: MEAN CELL VOLUME 89.2 fL (80-100); MEAN CORPUSCULAR HGB CONC 34.7 g/dl (32-36); MEAN PLATELET VOLUME 8.7 fL (7.4-10.4); PLATELET COUNT 397 K/uL (130-400); RED BLOOD COUNT 3.81 M/uL (4.7-6.1)
[2016-05-15 07:49] LABS: PARTIAL THROMBOPLASTIN RATIO 1.1
[2016-05-15 08:05] VITALS: BP 128/67; PULSE 88; TEMP 36.8; O2SAT 93
[2016-05-15 08:11] LABS: CREATININE 0.75 mg/dl (0.60-1.40)
[2016-05-15] MEDS: CALCIUM CARBONATE 1250MG TAB PO SCH (08:42)
[2016-05-15] MEDS: IPRATROPIUM BROMIDE/ALBUTEROL respimat INH INH SCH ×2 (08:42→12:00)
[2016-05-15] MEDS: METOPROLOL SUCC 25MG EXT REL TAB PO SCH (08:43)
[2016-05-15] MEDS: LOSARTAN POTASSIUM 25 MG TAB PO SCH (08:43)
[2016-05-15] MEDS ORDERED: TPRSR25 PO (11:20)
[2016-05-15] MEDS ORDERED: CZR25 PO (11:20)
--- NOTE | 2016-05-15 11:21 | Discharge Instructions ---
Discharge Instructions Admission Reason for Admission: Dyspnea, Troponin I Above Reference Range Discharge Discharge Diagnosis / Problem: acute viral illness Discharge Goals Goal(s): Increase independence, Improve disease control, Diagnostic testing, Therapeutic intervention Activity Recommendations Activity Limitations: per Instructions/Follow-up section Lifting Limitations: gradually increase as tolerated Exercise/Sports Limitations: until after follow-up appointment . Instructions / Follow-Up Instructions / Follow-Up no working until may 26, start losartan and metoprolol as prescribed Current Hospital Diet Patient's current hospital diet: AHA Diet (Heart Healthy) Discharge Diet Recommended Diet: AHA Diet (Heart Healthy) Pending Studies Studies pending at discharge: no Laboratory Results Hemoglobin A1c Test 05/11/16 07:05 Range/Units Estimated Average Glucose 123 mg/dl Hemoglobin A1c 5.9 H 4.5-5.6 % Lipid Panel Test 05/11/16 07:05 Range/Units Triglycerides Level 131 0-150 mg/dl Cholesterol Level 127 0-200 mg/dl HDL Cholesterol 20 mg/dl Cholesterol/HDL Ratio 6.4 LDL Cholesterol, Calculated 81 mg/dl Medical Emergencies . Who to Call and When: Medical Emergencies: If at any time you feel your situation is an emergency, please call 911 immediately. . Non-Emergent Contact Non-Emergency issues call your: Primary Care Provider Call Non-Emergent contact if: your pain is not controlled, you have any medication questions . Past History Medical & Surgical History: (1) Viral illness (2) Fever (3) Troponin I above reference range . "Provider Documentation" section prepared by Brent Carlton. VTE Core Measure Inpt VTE Proph given/why not?: Other Anticoagulation
--- NOTE | 2016-05-15 11:27 | Discharge Summary ---
Discharge Summary Date of Service May 15, 2016. Discharge Summary Admission Date: May 09, 2016 at 21:11 Discharge Date: May 15, 2016 Discharge Disposition: Home Principal Diagnosis: acute viral illness Problems/Secondary Diagnoses: (1) Hypertension Status: Chronic Procedures: ADRIAN Consultations: ID, cards Medication Reconciliation New Medications: Losartan Potassium (Losartan Potassium) 25 Mg Tab 25 MG PO QAM, #90 TAB 3 Refills Metoprolol Succinate (Metoprolol Succinate ER) 25 Mg Tabcr 25 MG PO QAM, #90 TABS 3 Refills Continued Medications: Simvastatin (Zocor) 20 Mg Tab 20 MG PO HS, TAB Discontinued Medications: Losartan Potassium (Cozaar) 100 Mg Tab 100 MG PO DAILY, TAB Referrals At Discharge Follow up Referrals: Physician Referral - Within 2 Weeks with Jose Lawler M.D. Discharge Exam Review of Systems: Constitutional: + weakness, No chills, No fever, No sweats Respiratory: No sputum Cardiovascular: No PND, No orthopnea Abdomen: No nausea, No pain Musculoskeletal: No joint pain Genitourinary - Male: No hematuria, No urinary frequency Neurologic: No memory loss, No weakness Psychiatric: No depression symptoms Endocrine: No fatigue Integumentary: No rash Physical Exam: General Appearance: WD/WN, no apparent distress Eyes: normal inspection, EOMI ENT: hearing grossly normal, pharynx normal Neck: supple, no JVD Respiratory/Chest: lungs clear, no respiratory distress Cardiovascular: no edema, no JVD Abdomen / GI: normal bowel sounds, soft, no pulsatile mass Extremities: no calf tenderness, normal capillary refill 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 previous work up in [place] was negative. No hunting / camping / unusual exposures His initial work up showed positive troponin/myocardial hypokinesia/leukocytosis Likely acute viral illness infectious (bacterial, fungal, viral) versus non infectious (KS can cause fever and leukocytosis) Infectious disease consult is appreciated, awaitng repeat blood cx, checking viral cultures received Vanco/Doxycyclin as per Dr. 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 Severe hypokinesis to akinesis of the inferior wall, otherwise, mild global hypokinesis. Type 2 diastolic dysfunction. Mild MR 05/13/16: ADRIAN: improved EF, no vegetations, valves are normal. LV normal, will need stress test outpatient in few weeks stop lasix continue losartan 25 mg daily HTN currently on metoprolol losartan Dyslipidemia, noted Total Time Spent: Greater than 30 minutes This includes examination of the patient, discharge planning, medication reconciliation, and communication with other providers. Discharge Instructions Please refer to the electronic Patient Visit Report (Discharge Instructions) for additional information. Additional Copies To Jose Lawler M.D.
[2016-05-15 11:38] VITALS: BP 128/67; PULSE 88; TEMP 36.8; O2SAT 93
[2016-05-15 12:09] VITALS: BP 130/75; PULSE 84; TEMP 36.9; O2SAT 98
[2016-05-16 18:39] LABS: COXSACKIE A10 <1:8; COXSACKIE A16 <1:8; COXSACKIE A2 <1:8; COXSACKIE A4 <1:8; COXSACKIE A7 <1:8; COXSACKIE A9 <1:8; COXSACKIE B1 <1:8 (<1:8); COXSACKIE B2 <1:8 (<1:8); COXSACKIE B3 <1:8 (<1:8); COXSACKIE B4 <1:8 (<1:8); COXSACKIE B5 <1:8 (<1:8); CYTOMEGALOVIRUS IGG AB 2.07; EPSTEIN BARR VIR CAPSID IGG 2.14 INDEX; PARVOVIRUS IgG INDEX 2.5 (<0.9); PARVOVIRUS IgM INDEX 0.1 (<0.9)
== END 2016-05-15 12:54 | disposition home or self-care (01) | DRG 865 ==
LOC: ENRESERVDT → ENRESERVTM → C.EDB 17:40 → C.2T 21:11
PROVIDERS: ADMIT Internal Medicine; ATTEND Hospitalist
PROC: B246ZZ4 Ultrasonography of Right and Left Heart, Transesophageal (ICD-10-PCS; principal; 2016-05-13)
DX: B34.9 Viral infection, unspecified (principal); I50.41 Acute combined systolic (congestive) and diastolic (congestive) heart failure; I42.9 Cardiomyopathy, unspecified; E87.6 Hypokalemia; I10 Essential (primary) hypertension; E78.5 Hyperlipidemia, unspecified; Z82.49 Family history of ischemic heart disease and other diseases of the circulatory system; Z79.899 Other long term (current) drug therapy; I34.0 Nonrheumatic mitral (valve) insufficiency

== ENCOUNTER → 2016-05-09 | Outpatient (CLI) | payer BC, OTHER ==
[2016-05-09 17:45] LABS: BASO % 0.1 %; BASO ABS # 0.02 K/uL (0-0.2); COMPLETE YES; EOS % 0.1 %; HEMATOCRIT 39.2 % (42-52); IG% 0.4 %; LYMPH % 15.2 %; LYMPH ABS # 2.12 K/uL (1.2-3.4); MEAN CELL VOLUME 91.2 fL (80-100); MEAN CORPUSCULAR HEMOGLOBIN 30.9 pg (25-34); MEAN CORPUSCULAR HGB CONC 33.9 g/dl (32-36); MEAN PLATELET VOLUME 9.1 fL (7.4-10.4); MONO % 13.4 %; NEUT % 70.8 %; PLATELET COUNT 237 K/uL (130-400); WHITE BLOOD COUNT 13.97 K/uL (4.8-10.8)
== END | disposition home or self-care (01) ==
LOC: C.LABMFLN 14:40
PROVIDERS: ATTEND Family Medicine
DX: R50.9 Fever, unspecified (principal); R06.09 Other forms of dyspnea

== ENCOUNTER → 2016-06-24 | Outpatient (CLI) | payer BC ==
[~2016-06-24] MED LIST changes: -LOSA1TAB38 PO
--- NOTE | 2016-06-24 13:01 | EXERCISE STRESS ECHO ---
*NOTICE TO RECEIVING LIBERTARIAN AGENCY This information is strictly Confidential and protected under [place] law. [place] law prohibits you from making any further disclosure of this information unless further disclosure is expressly permitted by the written consent of the person to whom it pertains or is authorized by law. A general authorization for the release of medical or other information is not sufficient for this purpose. Hospital accepts no responsibility if the information is made available to any other person, INCLUDING THE PATIENT. Interpretation Summary * Name: LUPE BRANDON Study Date: 06/24/2016 10:46 AM BP: 150/80 mmHg * Patient Location: Cardiopulmonary Lab HR: 74 * : 1960 (M/d/yyyy) Gender: Male Height: 68 in * Age: 55 yrs Ethnicity: CA Weight: 185 lb * Referring Physician: ADIA * Performed By: Fide Smith RCS * * Reason For Study: Myocarditis * BSA: 2.0 m2 * -- Conclusions -- * Normal stress echocardiogram at 13.4 METS and a peak heart rate of 95% maximum predicted. * No exercise induced chest pain. * No ECG changes. * Baseline echocardiogram notes normal left ventricular systolic function without wall motion abnormalities. Procedure Details * ECHOEX, CPT #70690 Left Ventricle * The left ventricle is normal in size. * Left ventricular systolic function is normal. * Ejection Fraction = 55-60%. * Resting wall motion: Normal. Stress wall motion: Appropriate increase in Left ventricular systolic function and decrease in cavity size. No stress induced segmental wall motion abnormalities. Stress Parameters * Normal baseline electrocardiogram. * Stress ECG: No ST changes. No arrhythmias. * The stress portion of this study was personally supervised by the undersigned interpreting physician. * Rest heart rate was '74' BPM. * Rest blood pressure was '150/80' * Maximum heart rate achieved was 157 bpm. * Maximum heart rate was 95 % of maximum age-predicted heart rate. * Maximum blood pressure was '222/72' * Total exercise time was '11:34' * Maximum exercise MET level achieved was '13.4' METS * Maximum treadmill speed was '4.2' miles per hour. * Maximum treadmill elevation was '16'% grade. * Exercise was terminated due to 'fatigue after achieving target heart rate'
== END | disposition home or self-care (01) ==
LOC: C.CPL 10:08
PROVIDERS: ATTEND Hospitalist
DX: I25.9 Chronic ischemic heart disease, unspecified (principal)

== ENCOUNTER → 2017-01-06 | Outpatient (CLI) | payer BC ==
[2017-01-06 14:44] LABS: ALT/SGPT 46 U/L (12-78); AST/SGOT 38 U/L (15-37); BLOOD UREA NITROGEN 12 mg/dl (7-18); BUN/CREATININE RATIO 13.2 (10-20); CALCIUM 9.1 mg/dl (8.5-10.1); CARBON DIOXIDE 28 mmol/L (21-32); CHLORIDE 103 mmol/L (98-107); CHOLESTEROL 149 mg/dl (0-200); CREATININE 0.92 mg/dl (0.60-1.40); GLUCOSE 96 mg/dl (70-99); POTASSIUM 3.7 mmol/L (3.5-5.1); SODIUM 137 mmol/L (136-145)
[2017-01-06 14:48] LABS: CHOLESTEROL/HDL RATIO 4.1; HDL CHOLESTEROL 36 mg/dl; LDL CHOLESTEROL CALCULATED 94 mg/dl; TRIGLYCERIDES 97 mg/dl (0-150); VERY LOW DENSITY LIPOPROT CALC 19 mg/dl
== END | disposition home or self-care (01) ==
LOC: C.LABMFLN 07:09
PROVIDERS: ATTEND Family Medicine
DX: I10 Essential (primary) hypertension (principal); E78.5 Hyperlipidemia, unspecified; B33.22 Viral myocarditis